=== PATIENT | male | born 1980 ===

== ENCOUNTER 2019-01-21 12:10 | Inpatient (IN) | payer MEDICARE ==
[2019-01-21] MEDS ORDERED: Morphine 4 MG/ML VIAL IV STA ×2 (12:44→14:39)
[2019-01-21] MEDS ORDERED: Sodium Chloride 0.9% 1,000 ML IV STA (12:44)
[2019-01-21] MEDS ORDERED: Morphine 4 MG/ML VIAL ONE ×2 (12:50→14:28)
[2019-01-21 13:23] LABS: BASO % 0.4 % (0.0-2.0); EOS # 0.1 K/uL (0.0-0.7); EOS % 1.1 % (0.0-4.0); HEMOGLOBIN 14.5 g/dL (12.0-18.0); LYMPH # 1.9 K/uL (1.0-4.3); LYMPH % 32.2 % (20.0-40.0); MEAN CELL VOLUME 86.4 fl (80.0-94.0); MEAN CORPUSCULAR HEMOGLOBIN 29.7 pg (27.0-31.0); MEAN CORPUSCULAR HGB CONC 34.4 g/dL (33.0-37.0); MEAN PLATELET VOLUME 7.9 fl (7.2-11.7); MONO # 0.7 K/uL (0.0-0.8); NEUT # 3.3 K/uL (1.8-7.0); NEUT % 55.3 % (50.0-75.0); RBC 4.9 Mil/uL (4.40-5.90); RED CELL DISTRIBUTION WIDTH 13.1 % (11.5-14.5)
[2019-01-21 13:36] LABS: ALB/GLOB RATIO 1.3 (1.0-2.1); ALBUMIN 4.8 g/dL (3.5-5.0); ALT/SGPT 38 U/L (21-72); AST/SGOT 28 U/L (17-59); BLOOD UREA NITROGEN 13 mg/dl (9-20); CALCIUM 9.4 mg/dL (8.4-10.2); GFR NON-AFRICAN AMERICAN > 60
[2019-01-21 13:40] LABS: BARBITURATES, UR NEGATIVE (NEGATIVE); BENZODIAZEPINES, UR NEGATIVE (NEGATIVE); OPIATES, UR POSITIVE (NEGATIVE); PHENCYCLIDINE, UR NEGATIVE (NEGATIVE)
--- NOTE | 2019-01-21 13:54 | CT ---
Date of service: 01/21/2019 PROCEDURE: CT Cervical Spine without contrast HISTORY: L arm weakness hx spinal fusion COMPARISON: CT scan without contrast from 08/15/2016 and MRI without contrast from 08/16/2016. TECHNIQUE: Axial computed tomography images were obtained of the cervical spine without the use of intravenous contrast. Coronal and sagittal reformatted images were created and reviewed. Radiation dose: Total exam DLP = 354.72 mGy-cm. This CT exam was performed using one or more of the following dose reduction techniques: Automated exposure control, adjustment of the mA and/or kV according to patient size, and/or use of iterative reconstruction technique. FINDINGS: VERTEBRAE: There is straightening of the cervical spine with loss of normal cervical lordosis. Vertebral alignment is normal. Vertebral height is maintained. There is no acute fracture or traumatic anterior listhesis. The craniocervical junction is normal. The atlantoaxial joint is normal. Status post ACDF at C5-6. The metallic screws and plate are well seated without evidence for loosening or screw fracture. DISCS/SPINAL CANAL/NEURAL FORAMINA: Evaluation of the discs and spinal canal is limited on noncontrast CT examination. Allowing for this: C2-3: No large disc herniation, neural foraminal or spinal canal stenosis. C3-4: No large disc herniation, neural foraminal narrowing or spinal canal stenosis. C4-5: Disc osteophyte complex without spinal canal stenosis. Asymmetric left uncovertebral joint hypertrophy contribute to mild left neural foraminal narrowing. C5-6: Status post discectomy and anterior fusion. No spinal canal stenosis or neural foraminal narrowing. C6-7: Broad-based disc osteophyte complex without central spinal canal stenosis or neural foraminal narrowing. C7-T1: No disc herniation, neural foraminal narrowing or spinal canal stenosis. PARASPINAL SOFT TISSUES: Unremarkable. OTHER FINDINGS: No apical pneumothorax. IMPRESSION: 1. Status post ACDF at C5-6, no evidence for hardware complications. 2. Disc osteophyte complex at C4-5 and C6-7, worse at C4-5 with mild left neural foraminal narrowing. No central spinal canal stenosis. If there is a persistent clinical concern, correlation with MRI of the cervical spine without intravenous contrast may be performed for further evaluation.
--- NOTE | 2019-01-21 13:58 | CT ---
Date of service: 01/21/2019 PROCEDURE: CT Thoracic Spine without contrast HISTORY: chronic thoracic pain worse today COMPARISON: 08/15/2016 TECHNIQUE: Axial computed tomography images were obtained of the thoracic spine without intravenous contrast. Coronal and sagittal reformatted images were created and reviewed. Radiation dose: Total exam DLP = 962.23 mGy-cm. This CT exam was performed using one or more of the following dose reduction techniques: Automated exposure control, adjustment of the mA and/or kV according to patient size, and/or use of iterative reconstruction technique. FINDINGS: VERTEBRAE: There is normal alignment of the thoracic vertebral bodies. There is normal thoracic kyphosis. There is no acute fracture or bone destruction. Bone mineralization is normal. DISCS/SPINAL CANAL/NEURAL FORAMINA: Evaluation of the discs, spinal canal and thoracic spinal cord is limited on noncontrast CT examination. Allowing for this, there is no large disc herniation, neural foraminal narrowing or spinal canal stenosis. PARASPINAL SOFT TISSUES: The paraspinous soft tissues are normal. OTHER FINDINGS: The visualized lungs are clear. IMPRESSION: No acute fracture. Evaluation of the discs, spinal canal and thoracic cord are limited on noncontrast CT examination, allowing for this no large disc herniation, neural foraminal narrowing or spinal canal stenosis.
--- NOTE | 2019-01-21 14:57 | ED PDOC ---
HPI: Back Time Seen by Provider: 01/21/19 12:34 Chief Complaint (Nursing): Upper Extremity Problem/Injury Chief Complaint (Provider): Upper Extremity Problem/Injury History Per: Patient History/Exam Limitations: no limitations Onset/Duration Of Symptoms: Days (x2 days) Additional Complaint(s): Patient is a 38 year old male with a past medical history of chronic thoracic and cervical spine pain, who reports to the emergency department for increasing back pain over the last x2 days. His pain management doctor is Dr. Marrero in [place]. Patient is currently taking Oxycodone, Soma, Gabapentin, Zanaflex and recently started Amitriptyline. He states that pain for the last x2 days is greater in intensity than normal but is in a similar location. Patient denies having any new trauma or IV drug use and states that he has not run out of his pain medications. Patient does also report to have left arm tingling and slight weakness but states that is chronic. He denies any fever, headache, recent spinal procedure, lowering of his pain medication dose, cough, vomiting or abdominal pain. Of note, approximately x2 years ago, patient was seen for back pain when he had a spinal stimulator in place and was diagnosed with a spinal hematoma. He further states that no surgical intervention was needed. PMD: Dr. Marrero Past Medical History Reviewed: Historical Data, Nursing Documentation, Vital Signs Vital Signs: Last Vital Signs Temp 100 F H 01/21/19 12:20 Pulse 122 H 01/21/19 12:20 Resp 16 01/21/19 12:20 BP 135/80 01/21/19 12:20 Pulse Ox 99 01/21/19 12:20 - Medical History PMH: Back Problems - Surgical History Surgical History: Back Surgery (C5-C6 fusion 2010) - Family History Family History: States: Unknown Family Hx - Immunization History Hx Tetanus Toxoid Vaccination: No Hx Influenza Vaccination: No Hx Pneumococcal Vaccination: No - Home Medications Home Medications: Ambulatory Orders Medication Instructions Recorded Amitriptyline HCl 50 mg PO HS 01/21/19 Carisoprodol [Soma] 350 mg PO BID 01/21/19 Gabapentin [Gralise] 800 mg PO TID 01/21/19 Lidocaine 5% [Lidoderm] 2 patch TD DAILY 01/21/19 Oxycodone HCl [Oxycodone HCl ER] 15 mg PO Q6 01/21/19 Tizanidine HCl [Zanaflex] 4 mg PO TID PRN 01/21/19 - Allergies Allergies/Adverse Reactions: Allergies Allergy/AdvReac Type Severity Reaction Status Date / Time No Known Allergies Allergy Verified 08/16/16 11:02 NIHSS Stroke Scale - Date/Time Evaluation Performed Date Performed: 01/21/19 Time Performed: 12:50 When Was NIHSS Performed: Baseline - How Severe is the Stroke Level of Consciousness: 0=Alert LOC to Questions: 0=Both comments correct LOC to commands: 0=Obeys both correctly Best Gaze: 0=Normal Visual: 0=No visual loss Facial: 0=Normal Motor Arm - Left: 1=Drift noted before 10 sec Motor Arm - Right: 0=No drift Motor Leg - Left: 0=No drift Motor Leg - Right: 0=No drift Limb Ataxia: 0=Absent Sensory: 0=Normal Best Language: 0=No aphasia Dysarthia: 0=Normal articulation Extinction & Inattention (Neglect): 0=Normal, no object Score: 1 Review of Systems ROS Statement: Except As Marked, All Systems Reviewed And Found Negative Constitutional: Negative for: Fever Respiratory: Negative for: Cough Gastrointestinal: Negative for: Abdominal Pain Musculoskeletal: Positive for: Back Pain Neurological: Positive for: Weakness (in left arm), Numbness (tingling in left arm). Negative for: Headache Physical Exam - Reviewed Nursing Documentation Reviewed: Yes Vital Signs Reviewed: Yes - Physical Exam Appears: Positive for: Non-toxic, No Acute Distress Head Exam: Positive for: ATRAUMATIC, NORMOCEPHALIC Respiratory: Positive for: Normal Breath Sounds. Negative for: Respiratory Distress Back: Positive for: Vertebral Tenderness (mild along lower cervical to mid thoracic spine), Other ((+) Lidoderm patch to right upper trapezius muscle with mild tenderness along lower cervical and mid thoracic spine; (-) erythema, edema) Neurological/Psych: Positive for: Alert, Oriented, Gait (normal ), Other (strength: Battery Mechanic strength in Right arm is 5/5 and 4/5 in Left ) - Laboratory Results Result Diagrams: 01/22/19 05:50 01/22/19 05:50 Lab Results: Total Bilirubin 0.4 mg/dl (0.2-1.3) 01/21/19 12:55 AST 28 U/L (17-59) 01/21/19 12:55 ALT 38 U/L (21-72) 01/21/19 12:55 Alkaline Phosphatase 78 U/L (38-126) 01/21/19 12:55 Total Protein 8.7 G/DL (6.3-8.2) H 01/21/19 12:55 Albumin 4.8 g/dL (3.5-5.0) 01/21/19 12:55 Globulin 3.8 gm/dL (2.2-3.9) 01/21/19 12:55 Albumin/Globulin Ratio 1.3 (1.0-2.1) 01/21/19 12:55 - ECG O2 Sat by Pulse Oximetry: 99 (RA) Pulse Ox Interpretation: Normal - Progress ED Course And Treament: 1700: remains in pain, has required several doses of opioid medications. Patient is a chronic pain patient Rx opioid by his pain specialist in [place]. He was truthful about his prescriptions and [employer] database queried. No other recent ED visits in EMR. He is aware of risks of fci opioid use and has pain action plan in place with his pain specialist. This exacerbation is acute flare and will r/o other contributing pathology. Medical Decision Making Medical Decision Making: Time: 1240 Plan: Will check labs, ESR or analgesics --CT cervical spine without contrast --Thoracic spine without contrast --Alcohol serum --CMP --Drug screen --CBC with differential --ESR --Sodium chloride 1,000 ml --Morphine 4 mg PO --Toradol 15 mg IVP Time: [address] FINDINGS: VERTEBRAE: There is straightening of the cervical spine with loss of normal cervical lordosis. Vertebral alignment is normal. Vertebral height is maintained. There is no acute fracture or traumatic anterior listhesis. The craniocervical junction is normal. The atlantoaxial joint is normal. Status post ACDF at C5-6. The metallic screws and plate are well seated without evidence for loosening or screw fracture. DISCS/SPINAL CANAL/NEURAL FORAMINA: Evaluation of the discs and spinal canal is limited on noncontrast CT examination. Allowing for this: C2-3: No large disc herniation, neural foraminal or spinal canal stenosis. C3-4: No large disc herniation, neural foraminal narrowing or spinal canal stenosis. C4-5: Disc osteophyte complex without spinal canal stenosis. Asymmetric left uncovertebral joint hypertrophy contribute to mild left neural foraminal narrowing. C5-6: Status post discectomy and anterior fusion. No spinal canal stenosis or neural foraminal narrowing. C6-7: Broad-based disc osteophyte complex without central spinal canal stenosis or neural foraminal narrowing. C7-T1: No disc herniation, neural foraminal narrowing or spinal canal stenosis. PARASPINAL SOFT TISSUES: Unremarkable. OTHER FINDINGS: No apical pneumothorax. IMPRESSION: 1. Status post ACDF at C5-6, no evidence for hardware complications. 2. Disc osteophyte complex at C4-5 and C6-7, worse at C4-5 with mild left neural foraminal narrowing. No central spinal canal stenosis. If there is a persistent clinical concern, correlation with MRI of the cervical spine without intravenous contrast may be performed for further evaluation. Time: [address] FINDINGS: VERTEBRAE: There is normal alignment of the thoracic vertebral bodies. There is normal thoracic kyphosis. There is no acute fracture or bone destruction. Bone mineralization is normal. DISCS/SPINAL CANAL/NEURAL FORAMINA: Evaluation of the discs, spinal canal and thoracic spinal cord is limited on noncontrast CT examination. Allowing for this, there is no large disc herniation, neural foraminal narrowing or spinal canal stenosis. PARASPINAL SOFT TISSUES: The paraspinous soft tissues are normal. OTHER FINDINGS: The visualized lungs are clear. IMPRESSION: No acute fracture. Evaluation of the discs, spinal canal and thoracic cord are limited on noncontrast CT examination, allowing for this no large disc herniation, neural foraminal narrowing or spinal canal stenosis. Time: 1440 --Patient remains in pain, additional morphine ordered. --Morphine 4 mg PO --Tylenol 650 mg PO Time: 1454 --Valium [address] C and T spines discussed w Dr Wilson radiology, she sees small pneumonia poor visualized on this CT, she recommends CT chest as she doesnt believe CXR will adequately visualize it. Accession No. : [id number] Patient Name / ID : ALEKSANDR GUARDADO / [id number] Exam Date : 01/21/2019 15:49:49 ( Approved ) Study Comment : Sex / Age : M / 38Y Creator : Daisy Samuel MD Dictator : Daisy aSmuel MD Permaculture Designer : Environmental Services Technician : Daisy Samuel MD Approver2 : Report Date : 01/21/2019 16:32:06 My Comment : Date of service: 01/21/2019 PROCEDURE: CT Chest without contrast HISTORY: mass/pneumonia on CT Tspine COMPARISON: CT thoracic spine same day TECHNIQUE: Contiguous axial images were obtained through the chest without intravenous contrast enhancement. Sagittal and coronal reconstructions were performed. Radiation dose: Total exam DLP = 553.71 mGy-cm. This CT exam was performed using one or more of the following dose reduction t echniques: Automated exposure control, adjustment of the mA and/or kV according to patient size, and/or use of iterative reconstruction technique. FINDINGS: LUNGS: There is a small amount of nonspecific reticular nodular change and infiltrate seen in the right upper lobe on axial images 26 through 38 series 3. Tree-in-bud appearance is suspected. There is additionally some mild linear subsegmental atelectasis and/or scarring at the right lung base and right middle lobe. Small amount of linear subsegmental atelectasis and scarring is seen in the lingula. MEDIASTINUM: Unremarkable thoracic aorta. No aneurysm. Heart is mildly enlarged. No pericardial effusion is seen. Main pulmonary artery unremarkable. No vascular congestion. There is evidence of some nonspecific scattered mediastinal lymph nodes in the right paratracheal and precarinal region with minimal amount seen in the subcarinal region. Lack of contrast limits evaluation of the hilar regions. No appreciable hilar adenopathy is clearly seen. There is also some mild induration of the anterior mediastinal fat without focal mass. A few tiny anterior mediastinal and prevascular lymph nodes are seen. No aortic atherosclerotic calcification. PLEURA: No pleural fluid. No pneumothorax. BONES: No rib fracture is seen. Please see CT scan thoracic spine report of same day for evaluation of the thoracic spine. Scapula appear intact as well as the visualized clavicles. UPPER ABDOMEN: Stomach is mildly distended but without wall thickening. Visualized esophagus is unremarkable. Visualized liver and spleen are within normal limits. OTHER FINDINGS: None. IMPRESSION: Nonspecific mild right upper lobe reticular nodular infiltrate with possible tree-in-bud appearance. ARAVIND infection should be excluded clinically. Mild linear subsegmental atelectasis elsewhere as described above. Mild nonspecific probable reactive mediastinal lymph nodes. No pleural effusion or pericardial effusion. Patient is a smoker and admits to mild cough recently but no SOB. Pt still c/o L arm weakness, has low grade fever, hx hardware in spinal canal 2 years ago w spinal hematoma. Admit medicine for workup and MRI in morning. Denies headache, photophobia, ambulating in ED well, very unlikely to be meningitis. Dose Zosyn initiated to cover lung and spine prior cultures were obtained. ------ Scribe Attestation: Documented by David Flores, acting as a scribe Julio Cesar Vann III, DO. Provider Scribe Attestation: All medical record entries made by the Scribe were at my direction and person ally dictated by me. I have reviewed the chart and agree that the record accurately reflects my personal performance of the history, physical exam, medical decision making, and the department course for this patient. I have also personally directed, reviewed, and agree with the discharge instructions and disposition. Disposition - Clinical Impression Clinical Impression: Left arm weakness, Pneumonia, Intractable back pain - Patient ED Disposition Is Patient to be Admitted: Yes - Disposition Disposition Time: 17:00 Condition: FAIR
--- NOTE | 2019-01-21 16:35 | CT ---
Date of service: 01/21/2019 PROCEDURE: CT Chest without contrast HISTORY: mass/pneumonia on CT Tspine COMPARISON: CT thoracic spine same day TECHNIQUE: Contiguous axial images were obtained through the chest without intravenous contrast enhancement. Sagittal and coronal reconstructions were performed. Radiation dose: Total exam DLP = 553.71 mGy-cm. This CT exam was performed using one or more of the following dose reduction techniques: Automated exposure control, adjustment of the mA and/or kV according to patient size, and/or use of iterative reconstruction technique. FINDINGS: LUNGS: There is a small amount of nonspecific reticular nodular change and infiltrate seen in the right upper lobe on axial images 26 through 38 series 3. Tree-in-bud appearance is suspected. There is additionally some mild linear subsegmental atelectasis and/or scarring at the right lung base and right middle lobe. Small amount of linear subsegmental atelectasis and scarring is seen in the lingula. MEDIASTINUM: Unremarkable thoracic aorta. No aneurysm. Heart is mildly enlarged. No pericardial effusion is seen. Main pulmonary artery unremarkable. No vascular congestion. There is evidence of some nonspecific scattered mediastinal lymph nodes in the right paratracheal and precarinal region with minimal amount seen in the subcarinal region. Lack of contrast limits evaluation of the hilar regions. No appreciable hilar adenopathy is clearly seen. There is also some mild induration of the anterior mediastinal fat without focal mass. A few tiny anterior mediastinal and prevascular lymph nodes are seen. No aortic atherosclerotic calcification. PLEURA: No pleural fluid. No pneumothorax. BONES: No rib fracture is seen. Please see CT scan thoracic spine report of same day for evaluation of the thoracic spine. Scapula appear intact as well as the visualized clavicles. UPPER ABDOMEN: Stomach is mildly distended but without wall thickening. Visualized esophagus is unremarkable. Visualized liver and spleen are within normal limits. OTHER FINDINGS: None. IMPRESSION: Nonspecific mild right upper lobe reticular nodular infiltrate with possible tree-in-bud appearance. ARAVIND infection should be excluded clinically. Mild linear subsegmental atelectasis elsewhere as described above. Mild nonspecific probable reactive mediastinal lymph nodes. No pleural effusion or pericardial effusion.
[2019-01-21] MEDS ORDERED: Piperacillin/Tazobact 4.5 GM in Sodium Chloride 0.9% 100 ML IVPB STA (18:16)
[2019-01-21] MEDS ORDERED: Oxycodone/Acetaminophen 5/325 mg Tab PO PRN (18:44)
[2019-01-21] MEDS ORDERED: oxyCODONE 10 mg ER Tab (oxyCONTIN) PO ONE (23:52)
[2019-01-22] MEDS ORDERED: OXYCODONE HCL 15 MG PO SCH
[2019-01-22 06:23] LABS: BASO % 0.5 % (0.0-2.0); EOS # 0.1 K/uL (0.0-0.7); HEMOGLOBIN 12.9 g/dL (12.0-18.0); LYMPH % 44.4 % (20.0-40.0); MEAN CELL VOLUME 87.2 fl (80.0-94.0); MEAN CORPUSCULAR HEMOGLOBIN 29.4 pg (27.0-31.0); MEAN CORPUSCULAR HGB CONC 33.7 g/dL (33.0-37.0); MEAN PLATELET VOLUME 7.5 fl (7.2-11.7); MONO # 0.4 K/uL (0.0-0.8); MONO % 9.1 % (0.0-10.0); NEUT # 1.9 K/uL (1.8-7.0); NRBC % 0.1 % (0.0-0.0); RBC 4.41 Mil/uL (4.40-5.90); RED CELL DISTRIBUTION WIDTH 13.3 % (11.5-14.5); WHITE BLOOD COUNT 4.5 K/uL (4.8-10.8)
[2019-01-22 06:36] LABS: BLOOD UREA NITROGEN 14 mg/dl (9-20); CALCIUM 9.2 mg/dL (8.4-10.2); GFR NON-AFRICAN AMERICAN > 60
[2019-01-22] MEDS: Pantoprazole 40 mg EC Tab PO SCH (08:33)
[2019-01-22] MEDS: Azithromycin 500 MG in Sodium Chloride 0.9% 250 ML IVPB SCH (08:33)
[2019-01-22] MEDS: Lidocaine 5% Patch TD SCH (08:34)
--- NOTE | 2019-01-22 08:34 | CP.PCM.CON ---
History of Present Illness - History of Present Illness History of Present Illness: 38 yo man w/ acute on chronic cervical and thoracic pain is referred for pain management. Patient has a history of left sided neck pain with some component of radiculopathy. He's s/p cervical epidural, peripheral stimulator, spinal co rd stimulator trials without success. Recently his pain has been managed by Oxycodone 15mg q6h, Neurontin 800mg q8h, Soma 350mg BID, Zanaflex. The pain flared up 2 days ago without precipitating factors. CT scan showed mild to moderate spondylotic changes, without significant disc herniations or foraminal stenosis. Pain is mainly on the left paraspinal regions, with radiation into the left o ccipital region as well as the left shoulder. There is numbness in the left hand as well. R/B/A of possible interventions were explained, patient elected to have a medial branch nerve block for facet syndrome. Past Patient History - Infectious Disease Hx of Infectious Diseases: None - Past Medical History & Family History Past Medical History?: Yes - Past Social History Smoking Status: Heavy Smoker > 10 Cigarettes Daily - CARDIAC Hx Cardiac Disorders: No - PULMONARY Hx Respiratory Disorders: No - NEUROLOGICAL Hx Neurological Disorder: No - HEENT Hx HEENT Problems: No - RENAL Hx Chronic Kidney Disease: No - ENDOCRINE/METABOLIC Hx Endocrine Disorders: No - HEMATOLOGICAL/ONCOLOGICAL Hx Blood Disorders: No Hx AIDS: No Hx Human Immunodeficiency Virus (HIV): No - INTEGUMENTARY Hx Dermatological Problems: No - MUSCULOSKELETAL/RHEUMATOLOGICAL Hx Musculoskeletal Disorders: Yes Hx Back Pain: Yes Hx Falls: No Other/Comment: Spinal cord stimulator placement and removal - GASTROINTESTINAL Hx Gastrointestinal Disorders: No - GENITOURINARY/GYNECOLOGICAL Hx Genitourinary Disorders: No - PSYCHIATRIC Hx Psychophysiologic Disorder: No Hx Substance Use: No - SURGICAL HISTORY Hx Surgeries: Yes Other/Comment: Spinal cord stimulator placement and removal. Cervical Fusion c4 -c6 2010 - ANESTHESIA Hx Anesthesia: Yes Hx Anesthesia Reactions: No Meds Allergies/Adverse Reactions: Allergies Allergy/AdvReac Type Severity Reaction Status Date / Time No Known Allergies Allergy Verified 08/16/16 11:02 - Medications Medications: Current Medications Amitriptyline HCl (Elavil) 50 mg PO HS [facility] Last Admin: 01/21/19 23:17 Dose: 50 mg Gabapentin (Neurontin) 800 mg PO TID [facility] Last Admin: 01/21/19 23:16 Dose: 800 mg Home Med (Carisoprodol [Soma]) 350 mg PO BID [facility] Home Med (Oxycodone Hcl [Oxycodone Hcl Er]) 15 mg PO Q6 [facility] Azithromycin 500 mg/ Sodium (Chloride) 250 mls @ 250 mls/hr IVPB DAILY [facility]; Protocol Lidocaine (Lidoderm) 1 ea TD DAILY [facility] Morphine Sulfate (Morphine Immediate Release Tab) 15 mg PO Q4 PRN PRN Reason: Pain, severe (8-10) Pantoprazole Sodium (Protonix Ec Tab) 40 mg PO DAILY [facility] Tizanidine HCl (Zanaflex) 4 mg PO TID PRN PRN Reason: pain Last Admin: 01/21/19 23:15 Dose: 4 mg Physical Exam - Neck Exam Neck exam: Positive for: Normal Inspection, Tenderness Results - Vital Signs Recent Vital Signs: Last Vital Signs Temp 98.3 F 01/22/19 07:56 Pulse 80 01/22/19 07:56 Resp 20 01/22/19 07:56 BP 110/70 01/22/19 07:56 Pulse Ox 97 01/22/19 07:56 - Labs Result Diagrams: 01/22/19 05:50 01/22/19 05:50 Labs: Laboratory Results - last 24 hr 01/21/19 01/21/19 01/21/19 12:55 12:55 12:55 WBC 6.0 RBC 4.90 Hgb 14.5 Hct 42.3 MCV 86.4 MCH 29.7 MCHC 34.4 RDW 13.1 Plt Count 214 MPV 7.9 Neut % (Auto) 55.3 Lymph % (Auto) 32.2 [place] % (Auto) 11.0 H Eos % (Auto) 1.1 Baso % (Auto) 0.4 Neut # (Auto) 3.3 Lymph # (Auto) 1.9 [place] # (Auto) 0.7 Eos # (Auto) 0.1 Baso # (Auto) 0.0 ESR 20 H Sodium 141 Potassium 4.0 Chloride 100 Carbon Dioxide 29 Anion Gap 16 BUN 13 Creatinine 0.8 Est GFR ( Amer) > 60 Est GFR (Non-Af Amer) > 60 Random Glucose 102 Calcium 9.4 Total Bilirubin 0.4 AST 28 ALT 38 Alkaline Phosphatase 78 Total Protein 8.7 H Albumin 4.8 Globulin 3.8 Albumin/Globulin Ratio 1.3 Urine Opiates Screen Positive H Urine Methadone Screen Negative Ur Barbiturates Screen Negative Ur Phencyclidine Scrn Negative Ur Amphetamines Screen Negative U Benzodiazepines Scrn Negative U Oth Cocaine Metabols Negative U Cannabinoids Screen Negative Alcohol, Quantitative < 10 01/22/19 01/22/19 05:50 05:50 WBC 4.5 L RBC 4.41 Hgb 12.9 Hct 38.4 MCV 87.2 MCH 29.4 MCHC 33.7 RDW 13.3 Plt Count 195 MPV 7.5 Neut % (Auto) 43.0 L Lymph % (Auto) 44.[address] [place] % (Auto) 9.1 Eos % (Auto) 3.0 Baso % (Auto) 0.5 Neut # (Auto) 1.9 Lymph # (Auto) 2.0 [place] # (Auto) 0.4 Eos # (Auto) 0.1 Baso # (Auto) 0.0 ESR Sodium 141 Potassium 4.5 Chloride 106 Carbon Dioxide 28 Anion Gap 12 BUN 14 Creatinine 0.7 L Est GFR ( Amer) > 60 Est GFR (Non-Af Amer) > 60 Random Glucose 97 Calcium 9.2 Total Bilirubin AST ALT Alkaline Phosphatase Total Protein Albumin Globulin Albumin/Globulin Ratio Urine Opiates Screen Urine Methadone Screen Ur Barbiturates Screen Ur Phencyclidine Scrn Ur Amphetamines Screen U Benzodiazepines Scrn U Oth Cocaine Metabols U Cannabinoids Screen Alcohol, Quantitative Assessment & Plan - Assessment and Plan (Free Text) Assessment: 38 yo man w/ acute on chronic neck pain. Pain is a combination of radiculoapthy and spondylosis, but thus far patient has only had treatment for radiculopathy. CT didn't show significant pathologies that would lead to radiculoapthy. - cervical medial branch nerve blocks - d/c Oxycodone, trial MSIR 15mg - continue rest of home regimen - consider MRI only if pain is refractory the nerve blocks - otherwise patient can be discharged after nerve block for follow-up with primary pain physician
[2019-01-22] MEDS: Morphine 15 mg Immediate Release Tab PO PRN ×3 (11:29→20:14)
--- NOTE | 2019-01-22 11:59 | CP.PCM.CON ---
History of Present Illness - History of Present Illness History of Present Illness: seen on rounds r/o MAC Patient is a 38 year old male with a past medical history of chronic thoracic and cervical spine pain, Upon admission noted to have abnormal CXR and referred for ID eval for this Patient is currently taking Oxycodone, Soma, Gabapentin, Zanaflex and recently started Amitriptyline. Review of Systems - Review of Systems All systems: reviewed and no additional remarkable complaints except - Constitutional Constitutional: As Per HPI - EENT Eyes: absent: As Per HPI, Blind Spots, Blurred Vision, Change in Vision, Decreased Night Vision, Diplopia, Discharge, Dry Eye, Exophthalmos, Floaters, Irritation, Itchy Eyes, Loss of Peripheral Vision, Pain, Photophobia, Requires Corrective Lenses, Sees Flashes, Spots in Vision, Tunnel Vision, Other Visual Disturbances, Loss of Vision, Other Ears: absent: As Per HPI, Decreased Hearing, Ear Discharge, Ear Pain, Tinnitus, Abnormal Hearing, Disequilibrium, Dizziness, Other Nose/Mouth/Throat: absent: As Per HPI, Epistaxis, Nasal Congestion, Nasal Discharge, Nasal Obstruction, Nasal Trauma, Nose Pain, Post Nasal Drip, Sinus Pain, Sinus Pressure, Bleeding Gums, Change in Voice, Dental Pain, Dry Mouth, Dysphagia, Halitosis, Hoarsness, Lip Swelling, Mouth Lesions, Mouth Pain, Odynophagia, Sore Throat, Throat Swelling, Tongue Swelling, Facial Pain, Neck Pain, Neck Mass, Other - Cardiovascular Cardiovascular: absent: As Per HPI, Acrocyanosis, Chest Pain, Chest Pain at Rest, Chest Pain with Activity, Claudication, Diaphoresis, Dyspnea, Dyspnea on Exertion, Edema, Irregular Heart Rhythm, Pain Radiating to Arm/Neck/Jaw, Leg Edema, Leg Ulcers, Lightheadedness, Orthopnea, Palpitations, Paroxysmal Nocturnal Dyspnea, Pedal Edema, Radiating Pain, Rapid Heart Rate, Slow Heart Rate, Syncope, Other - Respiratory Respiratory: As Per HPI. absent: Cough - Gastrointestinal Gastrointestinal: absent: As Per HPI, Abdominal Pain, Belching, Bloating, Change in Bowel Habits, Change in Stool Character, Coffee Ground Emesis, Constipation, Cramping, Diarrhea, Dyspepsia, Dysphagia, Early Satiety, Excessive Flatus, Fecal Incontinence, Heartburn, Hematemesis, Hematochezia, Loose Stools, Melena, Nausea, Odynophagia, Temesmus, Vomiting, Other - Genitourinary Genitourinary: absent: As Per HPI, Change in Urinary Stream, Difficulty Urinating, Dysuria, Flank Pain, Hematuria, Pyuria, Nocturia, Urinary Incontinence, Urinary Frequency, Urinary Hesitance, Urinary Urgency, Voiding Freq/Small Amts, Freq UTI, Hx Renal/Bladder Calculi, Hx /Renal Surgery, Bladder Distension, Other - Musculoskeletal Musculoskeletal: As Per HPI - Integumentary Integumentary: As Per HPI Past Patient History - Infectious Disease Hx of Infectious Diseases: None - Past Medical History & Family History Past Medical History?: Yes - Past Social History Smoking Status: Heavy Smoker > 10 Cigarettes Daily - CARDIAC Hx Cardiac Disorders: No - PULMONARY Hx Respiratory Disorders: No - NEUROLOGICAL Hx Neurological Disorder: No - HEENT Hx HEENT Problems: No - RENAL Hx Chronic Kidney Disease: No - ENDOCRINE/METABOLIC Hx Endocrine Disorders: No - HEMATOLOGICAL/ONCOLOGICAL Hx Blood Disorders: No Hx AIDS: No Hx Human Immunodeficiency Virus (HIV): No - INTEGUMENTARY Hx Dermatological Problems: No - MUSCULOSKELETAL/RHEUMATOLOGICAL Hx Musculoskeletal Disorders: Yes Hx Back Pain: Yes Hx Falls: No Other/Comment: Spinal cord stimulator placement and removal - GASTROINTESTINAL Hx Gastrointestinal Disorders: No - GENITOURINARY/GYNECOLOGICAL Hx Genitourinary Disorders: No - PSYCHIATRIC Hx Psychophysiologic Disorder: No Hx Substance Use: No - SURGICAL HISTORY Hx Surgeries: Yes Other/Comment: Spinal cord stimulator placement and removal. Cervical Fusion c4-c6 2010 - ANESTHESIA Hx Anesthesia: Yes Hx Anesthesia Reactions: No Meds Allergies/Adverse Reactions: Allergies Allergy/AdvReac Type Severity Reaction Status Date / Time No Known Allergies Allergy Verified 08/16/16 11:02 - Medications Medications: Current Medications Amitriptyline HCl (Elavil) 50 mg PO HS [facility] Last Admin: 01/21/19 23:17 Dose: 50 mg Gabapentin (Neurontin) 800 mg PO TID [facility] Last Admin: 01/21/19 23:16 Dose: 800 mg Home Med (Carisoprodol [Soma]) 350 mg PO BID [facility] Home Med (Oxycodone Hcl [Oxycodone Hcl Er]) 15 mg PO Q6 [facility] Azithromycin 500 mg/ Sodium (Chloride) 250 mls @ 250 mls/hr IVPB DAILY [facility]; Protocol Last Admin: 01/22/19 08:33 Dose: 250 mls/hr Lidocaine (Lidoderm) 1 ea TD DAILY [facility] Last Admin: 01/22/19 08:34 Dose: 1 ea Morphine Sulfate (Morphine Immediate Release Tab) 15 mg PO Q4 PRN PRN Reason: Pain, severe (8-10) Last Admin: 01/22/19 11:29 Dose: 15 mg Nicotine (Nicoderm Cq) 1 patch TD DAILY [facility] Pantoprazole Sodium (Protonix Ec Tab) 40 mg PO DAILY [facility] Last Admin: 01/22/19 08:33 Dose: 40 mg Tizanidine HCl (Zanaflex) 4 mg PO TID PRN PRN Reason: pain Last Admin: 01/21/19 23:15 Dose: 4 mg Physical Exam - Constitutional Appears: Non-toxic, No Acute Distress, Chronically Ill - Head Exam Head Exam: ATRAUMATIC, NORMAL INSPECTION, NORMOCEPHALIC - Eye Exam Eye Exam: EOMI, Normal appearance, PERRL Pupil Exam: NORMAL ACCOMODATION, PERRL - ENT Exam ENT Exam: Mucous Membranes Moist, Normal Exam - Neck Exam Neck exam: Positive for: Normal Inspection - Respiratory Exam Respiratory Exam: Clear to Auscultation Bilateral, NORMAL BREATHING PATTERN - Cardiovascular Exam Cardiovascular Exam: REGULAR RHYTHM - GI/Abdominal Exam GI & Abdominal Exam: Normal Bowel Sounds, Soft. absent: Tenderness - Rectal Exam Rectal Exam: Deferred - Exam Exam: NORMAL INSPECTION - Extremities Exam Extremities exam: Positive for: normal inspection - Back Exam Back exam: NORMAL INSPECTION - Neurological Exam Neurological exam: Alert, CN II-XII Intact, Normal Gait, Oriented x3, Reflexes Normal - Psychiatric Exam Psychiatric exam: Normal Affect, Normal Mood - Skin Skin Exam: Dry, Intact, Normal Color, Warm Results - Vital Signs Recent Vital Signs: Last Vital Signs Temp 98.3 F 01/22/19 07:56 Pulse 80 01/22/19 07:56 Resp 20 01/22/19 07:56 BP 110/70 01/22/19 07:56 Pulse Ox 97 01/22/19 07:56 - Labs Result Diagrams: 01/22/19 05:50 01/22/19 05:50 Labs: Laboratory Results - last 24 hr 01/21/19 01/21/19 01/21/19 12:55 12:55 12:55 WBC 6.0 RBC 4.90 Hgb 14.5 Hct 42.3 MCV 86.4 MCH 29.7 MCHC 34.4 RDW 13.1 Plt Count 214 MPV 7.9 Neut % (Auto) 55.3 Lymph % (Auto) 32.2 [place] % (Auto) 11.0 H Eos % (Auto) 1.1 Baso % (Auto) 0.4 Neut # (Auto) 3.3 Lymph # (Auto) 1.9 [place] # (Auto) 0.7 Eos # (Auto) 0.1 Baso # (Auto) 0.0 ESR 20 H Sodium 141 Potassium 4.0 Chloride 100 Carbon Dioxide 29 Anion Gap 16 BUN 13 Creatinine 0.8 Est GFR ( Amer) > 60 Est GFR (Non-Af Amer) > 60 Random Glucose 102 Calcium 9.4 Total Bilirubin 0.4 AST 28 ALT 38 Alkaline Phosphatase 78 Total Protein 8.7 H Albumin 4.8 Globulin 3.8 Albumin/Globulin Ratio 1.3 Urine Opiates Screen Positive H Urine Methadone Screen Negative Ur Barbiturates Screen Negative Ur Phencyclidine Scrn Negative Ur Amphetamines Screen Negative U Benzodiazepines Scrn Negative U Oth Cocaine Metabols Negative U Cannabinoids Screen Negative Alcohol, Quantitative < 10 01/22/19 01/22/19 05:50 05:50 WBC 4.5 L RBC 4.41 Hgb 12.9 Hct 38.4 MCV 87.2 MCH 29.4 MCHC 33.7 RDW 13.3 Plt Count 195 MPV 7.5 Neut % (Auto) 43.0 L Lymph % (Auto) 44.4 H [place] % (Auto) 9.1 Eos % (Auto) 3.0 Baso % (Auto) 0.5 Neut # (Auto) 1.9 Lymph # (Auto) 2.0 [place] # (Auto) 0.4 Eos # (Auto) 0.1 Baso # (Auto) 0.0 ESR Sodium 141 Potassium 4.5 Chloride 106 Carbon Dioxide 28 Anion Gap 12 BUN 14 Creatinine 0.7 L Est GFR ( Amer) > 60 Est GFR (Non-Af Amer) > 60 Random Glucose 97 Calcium 9.2 Total Bilirubin AST ALT Alkaline Phosphatase Total Protein Albumin Globulin Albumin/Globulin Ratio Urine Opiates Screen Urine Methadone Screen Ur Barbiturates Screen Ur Phencyclidine Scrn Ur Amphetamines Screen U Benzodiazepines Scrn U Oth Cocaine Metabols U Cannabinoids Screen Alcohol, Quantitative Assessment & Plan (1) Abnormal CXR (chest x-ray) Status: Acute (2) Back pain Status: Acute (3) Shoulder pain Status: Acute - Assessment and Plan (Free Text) Assessment: will send sputum AFB before clearing for discharge
[2019-01-22] MEDS ORDERED: guaiFENesin DM 200 mg-20 mg/10 ml UD PO SCH (19:45)
[2019-01-22] MEDS ORDERED: oxyCODONE 10 mg ER Tab (oxyCONTIN) PO ONE (23:34)
[2019-01-22] MEDS: Promethazine DM 12.5 mg-30 mg/10 ml Syrup PO SCH ×2 (23:58)
[2019-01-23] MEDS: Morphine 15 mg Immediate Release Tab PO PRN ×6 (00:13→22:02)
--- NOTE | 2019-01-23 02:24 | HP ---
CHIEF COMPLAINT: Back pain. HISTORY OF PRESENT ILLNESS: This is a 38-year-old male without significant past medical history, but history of chronic back pain for which the patient is followed up by pain management in [place] [address] . The patient also underwent spinal stimulator and multiple narcotics for long time. The patient was managing his pain fairly well with medication, but for the last few days, the patient's pain got significantly worse and was not getting controlled with the patient home medication management, so the patient was brought to the emergency room and was admitted for further management. REVIEW OF SYSTEMS: Positive for back pain. Review of systems otherwise is negative for headache, dizziness, syncope, loss of consciousness, chest pain, shortness of breath, nausea, vomiting, diarrhea, constipation, anemia, joint or lower extremity pain other than the back pain. Review of system of all other organ system is unremarkable. PAST MEDICAL HISTORY: Significant for chronic back pain. PAST SURGICAL HISTORY: Remarkable for spinal stimulator, back surgery and C5 and C6 fusion. PERSONAL HISTORY: The patient is currently a smoker, but no alcohol or substance abuse. MEDICATIONS: The patient is on multiple medications, which are as per reconciliation sheet, which were reviewed and ordered. ALLERGIES: THE PATIENT IS NOT ALLERGIC TO ANY MEDICATIONS. PHYSICAL EXAMINATION: GENERAL: A well-built, well-nourished, overweight 38-year-old male in no acute distress. VITAL SIGNS: Temperature 98.2, pulse 80, respirations 20, blood pressure 110/70, and saturation 97%. HEENT: Pupils are reacting to light. No JVD. No thyromegaly. No lymphadenopathy. No nystagmus. Normocephalic and atraumatic skull. HEART: S1 and S2, normal and regular. No significant murmur, gallop or rub is heard. LUNGS: Show good bilateral air exchange. No rales or rhonchi. ABDOMEN: Soft. Nontender. No organomegaly. No fluids. Bowel sounds are present and normal. EXTREMITIES: No edema. No calf swelling. No tenderness. No acute ischemia. CENTRAL NERVOUS SYSTEM: Essentially unchanged and there is no sign of any acute gross focal motor or sensory neurological deficits. DIAGNOSTIC DATA: Available diagnostic data reviewed. Urine toxicology is positive for opiates. WBC 4.5, hemoglobin 12.9, hematocrit 38.4, platelets 195. Sodium 141, potassium 4.5, chloride 106, bicarbonate 28, BUN 14, creatinine 0.7. SMA-12 yesterday was unremarkable. Thoracic spine and cervical spine CT did not reveal significant findings other than the patient's chronic surgery. Chest CAT scan was negative. Infectious Disease and pain management consults noted and appreciated. ADMITTING IMPRESSION: Intractable back pain. PLAN: As ordered. Case and plan discussed with the patient. Jim Rodriguez MD
[2019-01-23] MEDS: Promethazine DM 12.5 mg-30 mg/10 ml Syrup PO SCH ×3 (08:26→16:17)
[2019-01-23] MEDS: Azithromycin 500 MG in Sodium Chloride 0.9% 250 ML IVPB SCH (08:28)
[2019-01-23] MEDS: Pantoprazole 40 mg EC Tab PO SCH (09:10)
--- NOTE | 2019-01-23 09:45 | CP.PCM.PN ---
Subjective - Date & Time of Evaluation Date of Evaluation: 01/23/19 Time of Evaluation: 09:00 - Subjective Subjective: 38 y/o M was evaluated and examined by bedside with Dr Rodriguez. Pt reports feeling Ok. Pt reports increased coughing since last night, pt is collecting sputum. Pt had a fever of 102.8 F this morning. Pt tolerating PO. 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 Pt last worked there 9 years ago. Pt smokes ~10 cigarettes a day. No TB history or ill contact. Pt reports having TB vaccine at his home country, [facility]. Objective - Vital Signs/Intake and Output Vital Signs (last 24 hours): Temp Pulse Resp BP Pulse Ox 102.8 F H 82 20 109/68 99 01/23/19 08:24 01/23/19 08:09 01/23/19 08:09 01/23/19 08:09 01/23/19 08:17 - Medications Medications: Current Medications Acetaminophen (Tylenol 325mg Tab) 650 mg PO Q6 PRN PRN Reason: Fever >100.4 F Last Admin: 01/23/19 08:24 Dose: 650 mg Amitriptyline HCl (Elavil) 50 mg PO HS [facility] Last Admin: 01/22/19 22:22 Dose: 50 mg Gabapentin (Neurontin) 800 mg PO TID [facility] Last Admin: 01/23/19 08:26 Dose: 800 mg Home Med (Carisoprodol [Soma]) 350 mg PO BID [facility] Azithromycin 500 mg/ Sodium (Chloride) 250 mls @ 250 mls/hr IVPB DAILY [facility]; Protocol Last Admin: 01/23/19 08:28 Dose: 250 mls/hr Lidocaine (Lidoderm) 1 ea TD DAILY [facility] Last Admin: 01/22/19 08:34 Dose: 1 ea Morphine Sulfate (Morphine Immediate Release Tab) 15 mg PO Q4 PRN PRN Reason: Pain, severe (8-10) Last Admin: 01/23/19 06:06 Dose: 15 mg Nicotine (Nicoderm Cq) 1 patch TD DAILY [facility] Last Admin: 01/23/19 08:26 Dose: 1 patch Pantoprazole Sodium (Protonix Ec Tab) 40 mg PO DAILY [facility] Last Admin: 01/22/19 08:33 Dose: 40 mg Promethazine HCl/Dextromethorphan (Phenergan Dm Syrup) 10 ml PO TID [facility] Last Admin: 01/23/19 08:26 Dose: 10 ml Tizanidine HCl (Zanaflex) 4 mg PO TID PRN PRN Reason: pain Last Admin: 01/22/19 22:20 Dose: 4 mg - Labs Labs: 01/22/19 05:50 01/22/19 05:50 - Constitutional Appears: No Acute Distress - Head Exam Head Exam: ATRAUMATIC, NORMAL INSPECTION - Eye Exam Eye Exam: EOMI - ENT Exam ENT Exam: Mucous Membranes Moist - Neck Exam Neck Exam: Full ROM, Normal Inspection. absent: Lymphadenopathy, Meningismus - Respiratory Exam Respiratory Exam: NORMAL BREATHING PATTERN. absent: Rales, Rhonchi, Wheezes, Respiratory Distress - Cardiovascular Exam Cardiovascular Exam: REGULAR RHYTHM, +S1, +S2 - GI/Abdominal Exam GI & Abdominal Exam: Soft. absent: Firm, Guarding, Rigid, Tenderness - Extremities Exam Extremities Exam: Full ROM, Normal Inspection. absent: Calf Tenderness, Pedal Edema - Back Exam Back Exam: absent: CVA tenderness (L), CVA tenderness (R) - Neurological Exam Neurological Exam: Alert, Awake, Oriented x3 Assessment and Plan - Assessment and Plan (Free Text) Assessment: 38 y/o M with a PMHx of chronic upper back pain admitted for intractable back pain and now being evaluated for RUL pulmonary lesion. PLAN: >RUL pulmonary lesion --Fever this morning --CT Chest: non-specific mild RUL reticular nodular infiltrate. ARAVIND should be excluded. --ID on board, Dr Snyder. --Hx of mine work: posible pneumoconiosis? --F/U AF sputum culture x3 --F/U HIV, TB Quantiferon, Blood culture and urine culture. >Chronic upper back pain --S/P C5-6 fusion in 2010 --Pain management on board, Dr Sawant. --Home meds resumed. --Morphine IR PRN. >DVT Prophylaxis --SCD's --Ambulation encouraged. --At low risk for DVT. Case discussed with Dr Jennifer Rodriguez PGY-2
--- NOTE | 2019-01-23 11:50 | RAD ---
Date of service: 01/23/2019 HISTORY: Fever COMPARISON: No prior. TECHNIQUE: 1 view obtained. FINDINGS: LUNGS: No active pulmonary disease. PLEURA: No significant pleural effusion identified, no pneumothorax apparent. CARDIOVASCULAR: No aortic atherosclerotic calcification present. Normal cardiac size. No pulmonary vascular congestion. OSSEOUS STRUCTURES: No significant abnormalities. VISUALIZED UPPER ABDOMEN: Normal. OTHER FINDINGS: None. IMPRESSION: No active disease.
[2019-01-23 12:56] LABS: URINE BILIRUBIN NEGATIVE (NEGATIVE); URINE BLOOD NEGATIVE (NEGATIVE); URINE CLARITY CLEAR (Clear); URINE COLOR YELLOW (YELLOW); URINE GLUCOSE (UA) NEG (NEGATIVE); URINE LEUKOCYTE ESTERASE NEG Leu/uL (Negative); URINE PROTEIN NEGATIVE (NEGATIVE); URINE UROBILINOGEN 0.2-1.0 mg/dL (0.2-1.0)
--- NOTE | 2019-01-23 12:58 | CP.PCM.PN ---
Subjective - Date & Time of Evaluation Date of Evaluation: 01/23/19 Time of Evaluation: 08:00 - Subjective Subjective: seen on rounds IV rx in progress await AFB x 3 Objective - Vital Signs/Intake and Output Vital Signs (last 24 hours): Temp Pulse Resp BP Pulse Ox 102.8 F H 82 20 109/68 99 01/23/19 08:24 01/23/19 08:09 01/23/19 08:09 01/23/19 08:09 01/23/19 08:17 - Medications Medications: Current Medications Acetaminophen (Tylenol 325mg Tab) 650 mg PO Q6 PRN PRN Reason: Fever >100.4 F Last Admin: 01/23/19 08:24 Dose: 650 mg Amitriptyline HCl (Elavil) 50 mg PO HS [facility] Last Admin: 01/22/19 22:22 Dose: 50 mg Gabapentin (Neurontin) 800 mg PO TID [facility] Last Admin: 01/23/19 08:26 Dose: 800 mg Home Med (Carisoprodol [Soma]) 350 mg PO BID [facility] Azithromycin 500 mg/ Sodium (Chloride) 250 mls @ 250 mls/hr IVPB DAILY [facility]; Protocol Last Admin: 01/23/19 08:28 Dose: 250 mls/hr Lidocaine (Lidoderm) 1 ea TD DAILY [facility] Last Admin: 01/22/19 08:34 Dose: 1 ea Morphine Sulfate (Morphine Immediate Release Tab) 15 mg PO Q4 PRN PRN Reason: Pain, severe (8-10) Last Admin: 01/23/19 10:09 Dose: 15 mg Nicotine (Nicoderm Cq) 1 patch TD DAILY [facility] Last Admin: 01/23/19 08:26 Dose: 1 patch Pantoprazole Sodium (Protonix Ec Tab) 40 mg PO DAILY [facility] Last Admin: 01/23/19 09:10 Dose: 40 mg Promethazine HCl/Dextromethorphan (Phenergan Dm Syrup) 10 ml PO TID [facility] Last Admin: 01/23/19 08:26 Dose: 10 ml Tizanidine HCl (Zanaflex) 4 mg PO TID PRN PRN Reason: pain Last Admin: 01/22/19 22:20 Dose: 4 mg - Labs Labs: 01/22/19 05:50 01/22/19 05:50 - Constitutional Appears: Non-toxic, Chronically Ill - Head Exam Head Exam: ATRAUMATIC, NORMAL INSPECTION, NORMOCEPHALIC - Eye Exam Eye Exam: EOMI, Normal appearance, PERRL Pupil Exam: NORMAL ACCOMODATION, PERRL - ENT Exam ENT Exam: Mucous Membranes Moist, Normal Exam - Neck Exam Neck Exam: Full ROM, Normal Inspection. absent: Lymphadenopathy - Respiratory Exam Respiratory Exam: Clear to Ausculation Bilateral, NORMAL BREATHING PATTERN - Cardiovascular Exam Cardiovascular Exam: REGULAR RHYTHM, +S1, +S2. absent: Murmur - GI/Abdominal Exam GI & Abdominal Exam: Soft, Normal Bowel Sounds. absent: Tenderness - Rectal Exam Rectal Exam: Deferred - Exam Exam: NORMAL INSPECTION - Extremities Exam Extremities Exam: Full ROM, Normal Capillary Refill, Normal Inspection. absent: Joint Swelling, Pedal Edema - Back Exam Back Exam: NORMAL INSPECTION - Neurological Exam Neurological Exam: Alert, Awake, CN II-XII Intact, Normal Gait, Oriented x3 - Psychiatric Exam Psychiatric exam: Normal Affect, Normal Mood - Skin Skin Exam: Dry, Intact, Normal Color, Warm Assessment and Plan (1) Abnormal CXR (chest x-ray) Status: Acute (2) Back pain Status: Acute (3) Shoulder pain Status: Acute - Assessment and Plan (Free Text) Assessment: check AFB before OR for epidural
[2019-01-23] MEDS: Lidocaine 5% Patch TD SCH (15:24)
[2019-01-23] MEDS ORDERED: Promethazine DM 12.5 mg-30 mg/10 ml Syrup PO PRN (22:31)
[2019-01-23] MEDS: Promethazine DM 6.25 mg-15 mg/5 ml Syrup PO PRN (23:07)
[2019-01-24] MEDS: Morphine 15 mg Immediate Release Tab PO PRN ×5 (05:33→22:22)
[2019-01-24 06:50] LABS: BASO % 0.5 % (0.0-2.0); EOS # 0.2 K/uL (0.0-0.7); EOS % 4.4 % (0.0-4.0); LYMPH % 41.6 % (20.0-40.0); MEAN CELL VOLUME 86.7 fl (80.0-94.0); MEAN CORPUSCULAR HEMOGLOBIN 28.6 pg (27.0-31.0); MEAN PLATELET VOLUME 7.9 fl (7.2-11.7); MONO # 0.5 K/uL (0.0-0.8); MONO % 11.5 % (0.0-10.0); NRBC % 0.2 % (0.0-0.0); RBC 4.89 Mil/uL (4.40-5.90); RED CELL DISTRIBUTION WIDTH 13.2 % (11.5-14.5); WHITE BLOOD COUNT 4.7 K/uL (4.8-10.8)
[2019-01-24 06:59] LABS: ALB/GLOB RATIO 1.2 (1.0-2.1); ALBUMIN 4.3 g/dL (3.5-5.0); ALT/SGPT 36 U/L (21-72); AST/SGOT 29 U/L (17-59); BLOOD UREA NITROGEN 12 mg/dl (9-20); CALCIUM 9.1 mg/dL (8.4-10.2); GFR NON-AFRICAN AMERICAN > 60
--- NOTE | 2019-01-24 08:18 | CP.PCM.PN ---
<Jose David Rodriguez - Last Filed: 01/24/19 12:07> Subjective - Date & Time of Evaluation Date of Evaluation: 01/24/19 Time of Evaluation: 06:30 - Subjective Subjective: 38 y/o M was evaluated and examined by bedside with Dr Rodriguez. Pt reports feeling well. Pt reports coughing seems to be improving. Back pain is controlled with medications. Ptafebrile, tolerating PO with NO acute events overnight. Objective - Vital Signs/Intake and Output Vital Signs (last 24 hours): Temp Pulse Resp BP Pulse Ox 98.2 F 83 19 126/76 96 01/24/19 00:39 01/24/19 00:39 01/24/19 00:39 01/24/19 00:39 01/24/19 00:39 - Medications Medications: Current Medications Acetaminophen (Tylenol 325mg Tab) 650 mg PO Q6 PRN PRN Reason: Fever >100.4 F Last Admin: 01/23/19 08:24 Dose: 650 mg Amitriptyline HCl (Elavil) 50 mg PO HS [facility] Last Admin: 01/23/19 22:01 Dose: 50 mg Gabapentin (Neurontin) 800 mg PO TID [facility] Last Admin: 01/23/19 16:17 Dose: 800 mg Home Med (Carisoprodol [Soma]) 350 mg PO BID [facility] Azithromycin 500 mg/ Sodium (Chloride) 250 mls @ 250 mls/hr IVPB DAILY [facility]; Protocol Last Admin: 01/23/19 08:28 Dose: 250 mls/hr Lidocaine (Lidoderm) 1 ea TD DAILY [facility] Last Admin: 01/23/19 15:24 Dose: 1 ea Morphine Sulfate (Morphine Immediate Release Tab) 15 mg PO Q4 PRN PRN Reason: Pain, severe (8-10) Last Admin: 01/24/19 05:33 Dose: 15 mg Nicotine (Nicoderm Cq) 1 patch TD DAILY [facility] Last Admin: 01/23/19 08:26 Dose: 1 patch Pantoprazole Sodium (Protonix Ec Tab) 40 mg PO DAILY [facility] Last Admin: 01/23/19 09:10 Dose: 40 mg Promethazine HCl/Dextromethorphan (Phenergan Dm Syrup) 10 ml PO Q6 PRN PRN Reason: Cough Last Admin: 01/23/19 23:07 Dose: 10 ml Tizanidine HCl (Zanaflex) 4 mg PO TID PRN PRN Reason: pain Last Admin: 01/23/19 16:18 Dose: 4 mg - Labs Labs: 01/24/19 04:52 01/24/19 04:52 - Additional Findings Additional findings: - Constitutional Appears: No Acute Distress - Head Exam Head Exam: ATRAUMATIC, NORMAL INSPECTION - Eye Exam Eye Exam: EOMI - ENT Exam ENT Exam: Mucous Membranes Moist - Neck Exam Neck Exam: Full ROM, Normal Inspection. absent: Lymphadenopathy, Meningismus - Respiratory Exam Respiratory Exam: NORMAL BREATHING PATTERN. absent: Rales, Rhonchi, Wheezes, Respiratory Distress - Cardiovascular Exam Cardiovascular Exam: REGULAR RHYTHM, +S1, +S2 - GI/Abdominal Exam GI & Abdominal Exam: Soft. absent: Firm, Guarding, Rigid, Tenderness - Extremities Exam Extremities Exam: Full ROM, Normal Inspection. absent: Calf Tenderness, Pedal Edema - Back Exam Back Exam: absent: CVA tenderness (L), CVA tenderness (R) - Neurological Exam Neurological Exam: Alert, Awake, Oriented x3 Assessment and Plan - Assessment and Plan (Free Text) Assessment: 38 y/o M with a PMHx of chronic upper back pain admitted for intractable back pain and now being evaluated for RUL pulmonary lesion. --CT Chest: non-specific mild RUL reticular nodular infiltrate. PLAN: >RUL pulmonary lesion --Afebrile, vitals stable. --ID on board, Dr Snyder. --HIV negative. Pro-calcitonin was low. --F/U AF sputum culture x3 --F/U TB Quantiferon, Blood culture and urine culture. >Chronic upper back pain --S/P C5-6 fusion in 2010. --Pain is controlled. --Pain management on board, Dr Sawant. --Home meds resumed. --Morphine IR PRN. >DVT Prophylaxis --SCD's --Ambulation encouraged. --At low risk for DVT. Case discussed with Dr Jennifer Rodriguez PGY-2 <Jim Rodriguez - Last Filed: 01/24/19 12:25> Objective - Vital Signs/Intake and Output Vital Signs (last 24 hours): Temp Pulse Resp BP Pulse Ox 97.9 F 78 20 125/81 96 01/24/19 09:00 01/24/19 09:00 01/24/19 09:00 01/24/19 09:00 01/24/19 09:00 - Medications Medications: Current Medications Acetaminophen (Tylenol 325mg Tab) 650 mg PO Q6 PRN PRN Reason: Fever >100.4 F Last Admin: 01/23/19 08:24 Dose: 650 mg Amitriptyline HCl (Elavil) 50 mg PO HS [facility] Last Admin: 01/23/19 22:01 Dose: 50 mg Gabapentin (Neurontin) 800 mg PO TID [facility] Last Admin: 01/24/19 08:40 Dose: 800 mg Home Med (Carisoprodol [Soma]) 350 mg PO BID [facility] Azithromycin 500 mg/ Sodium (Chloride) 250 mls @ 250 mls/hr IVPB DAILY [facility]; Protocol Last Admin: 01/24/19 08:42 Dose: 250 mls/hr Lidocaine (Lidoderm) 1 ea TD DAILY [facility] Last Admin: 01/24/19 08:41 Dose: 1 ea Morphine Sulfate (Morphine Immediate Release Tab) 15 mg PO Q4 PRN PRN Reason: Pain, severe (8-10) Last Admin: 01/24/19 10:26 Dose: 15 mg Nicotine (Nicoderm Cq) 1 patch TD DAILY [facility] Last Admin: 01/24/19 08:41 Dose: 1 patch Pantoprazole Sodium (Protonix Ec Tab) 40 mg PO DAILY [facility] Last Admin: 01/24/19 08:40 Dose: 40 mg Promethazine HCl/Dextromethorphan (Phenergan Dm Syrup) 10 ml PO Q6 PRN PRN Reason: Cough Last Admin: 01/24/19 08:45 Dose: 10 ml Tizanidine HCl (Zanaflex) 4 mg PO TID PRN PRN Reason: pain Last Admin: 01/24/19 08:40 Dose: 4 mg - Labs Labs: 01/24/19 04:52 01/24/19 04:52 Assessment and Plan - Assessment and Plan (Free Text) Assessment: Patient was personally seen and examined by me in rounds with residents. Available labs and diagnostic data reviewed. Case, Patient's condition and management plan discussed with residents in rounds. Agree with resident's progress note. Plan: As ordered.
[2019-01-24] MEDS: Pantoprazole 40 mg EC Tab PO SCH (08:40)
[2019-01-24] MEDS: Lidocaine 5% Patch TD SCH (08:41)
[2019-01-24] MEDS: Azithromycin 500 MG in Sodium Chloride 0.9% 250 ML IVPB SCH (08:42)
[2019-01-24] MEDS: Promethazine DM 6.25 mg-15 mg/5 ml Syrup PO PRN ×2 (08:45→21:18)
--- NOTE | 2019-01-24 14:22 | CP.PCM.PN ---
Subjective - Date & Time of Evaluation Date of Evaluation: 01/24/19 Time of Evaluation: 08:00 - Subjective Subjective: NAD NO NEW COMPLAINTS SEEN ON ROUNDS LABS REVIEWED ORDERS SIGNED Objective - Vital Signs/Intake and Output Vital Signs (last 24 hours): Temp Pulse Resp BP Pulse Ox 97.9 F 78 20 125/81 96 01/24/19 09:00 01/24/19 09:00 01/24/19 09:00 01/24/19 09:00 01/24/19 09:00 - Medications Medications: Current Medications Acetaminophen (Tylenol 325mg Tab) 650 mg PO Q6 PRN PRN Reason: Fever >100.4 F Last Admin: 01/23/19 08:24 Dose: 650 mg Amitriptyline HCl (Elavil) 50 mg PO HS [facility] Last Admin: 01/23/19 22:01 Dose: 50 mg Gabapentin (Neurontin) 800 mg PO TID [facility] Last Admin: 01/24/19 13:45 Dose: 800 mg Home Med (Carisoprodol [Soma]) 350 mg PO BID [facility] Azithromycin 500 mg/ Sodium (Chloride) 250 mls @ 250 mls/hr IVPB DAILY [facility]; Protocol Last Admin: 01/24/19 08:42 Dose: 250 mls/hr Lidocaine (Lidoderm) 1 ea TD DAILY [facility] Last Admin: 01/24/19 08:41 Dose: 1 ea Morphine Sulfate (Morphine Immediate Release Tab) 15 mg PO Q4 PRN PRN Reason: Pain, severe (8-10) Last Admin: 01/24/19 14:13 Dose: 15 mg Nicotine (Nicoderm Cq) 1 patch TD DAILY [facility] Last Admin: 01/24/19 08:41 Dose: 1 patch Pantoprazole Sodium (Protonix Ec Tab) 40 mg PO DAILY [facility] Last Admin: 01/24/19 08:40 Dose: 40 mg Promethazine HCl/Dextromethorphan (Phenergan Dm Syrup) 10 ml PO Q6 PRN PRN Reason: Cough Last Admin: 01/24/19 08:45 Dose: 10 ml Tizanidine HCl (Zanaflex) 4 mg PO TID PRN PRN Reason: pain Last Admin: 01/24/19 08:40 Dose: 4 mg - Labs Labs: 01/24/19 04:52 01/24/19 04:52 - Constitutional Appears: Chronically Ill - Head Exam Head Exam: ATRAUMATIC, NORMAL INSPECTION, NORMOCEPHALIC - Eye Exam Eye Exam: EOMI, Normal appearance, PERRL Pupil Exam: NORMAL ACCOMODATION, PERRL - ENT Exam ENT Exam: Mucous Membranes Moist, Normal Exam - Neck Exam Neck Exam: Full ROM, Normal Inspection. absent: Lymphadenopathy - Respiratory Exam Respiratory Exam: Clear to Ausculation Bilateral, NORMAL BREATHING PATTERN - Cardiovascular Exam Cardiovascular Exam: REGULAR RHYTHM, +S1, +S2. absent: Murmur - GI/Abdominal Exam GI & Abdominal Exam: Soft, Normal Bowel Sounds. absent: Tenderness - Rectal Exam Rectal Exam: Deferred - Exam Exam: NORMAL INSPECTION - Extremities Exam Extremities Exam: Full ROM, Normal Capillary Refill, Normal Inspection. absent: Joint Swelling, Pedal Edema - Back Exam Back Exam: NORMAL INSPECTION - Neurological Exam Neurological Exam: Alert, Awake, CN II-XII Intact, Normal Gait, Oriented x3 - Psychiatric Exam Psychiatric exam: Normal Affect, Normal Mood - Skin Skin Exam: Dry, Intact, Normal Color, Warm Assessment and Plan (1) Abnormal CXR (chest x-ray) Status: Acute (2) Back pain Status: Acute (3) Shoulder pain Status: Acute - Assessment and Plan (Free Text) Assessment: AWAIT FOR AFB SMEARS BEFOR OR FOR EPIDURAL INJECTION
--- NOTE | 2019-01-24 14:24 | CP.PCM.PN ---
Subjective - Date & Time of Evaluation Date of Evaluation: 01/24/19 Time of Evaluation: 14:20 - Subjective Subjective: Patient is still undergoing work-up for RUL CT finding. Awaiting final culture results. Objective - Vital Signs/Intake and Output Vital Signs (last 24 hours): Temp Pulse Resp BP Pulse Ox 97.9 F 78 20 125/81 96 01/24/19 09:00 01/24/19 09:00 01/24/19 09:00 01/24/19 09:00 01/24/19 09:00 - Medications Medications: Current Medications Acetaminophen (Tylenol 325mg Tab) 650 mg PO Q6 PRN PRN Reason: Fever >100.4 F Last Admin: 01/23/19 08:24 Dose: 650 mg Amitriptyline HCl (Elavil) 50 mg PO HS [facility] Last Admin: 01/23/19 22:01 Dose: 50 mg Gabapentin (Neurontin) 800 mg PO TID [facility] Last Admin: 01/24/19 13:45 Dose: 800 mg Home Med (Carisoprodol [Soma]) 350 mg PO BID [facility] Azithromycin 500 mg/ Sodium (Chloride) 250 mls @ 250 mls/hr IVPB DAILY [facility]; Protocol Last Admin: 01/24/19 08:42 Dose: 250 mls/hr Lidocaine (Lidoderm) 1 ea TD DAILY [facility] Last Admin: 01/24/19 08:41 Dose: 1 ea Morphine Sulfate (Morphine Immediate Release Tab) 15 mg PO Q4 PRN PRN Reason: Pain, severe (8-10) Last Admin: 01/24/19 14:13 Dose: 15 mg Nicotine (Nicoderm Cq) 1 patch TD DAILY [facility] Last Admin: 01/24/19 08:41 Dose: 1 patch Pantoprazole Sodium (Protonix Ec Tab) 40 mg PO DAILY [facility] Last Admin: 01/24/19 08:40 Dose: 40 mg Promethazine HCl/Dextromethorphan (Phenergan Dm Syrup) 10 ml PO Q6 PRN PRN Reason: Cough Last Admin: 01/24/19 08:45 Dose: 10 ml Tizanidine HCl (Zanaflex) 4 mg PO TID PRN PRN Reason: pain Last Admin: 01/24/19 08:40 Dose: 4 mg - Labs Labs: 01/24/19 04:52 01/24/19 04:52 Assessment and Plan - Assessment and Plan (Free Text) Assessment: 38 yo man w/ acute on chronic neck pain. Injection is delayed due to ID work-up of suspicious CT chest finding. If patient still wants to have injection while hospitalized, it will have to wait until Tuesday. In any event, the pain issue isn't acute and can be managed as outpatient - f/u ID recommendations - patient may be discharged to own pain physician, patient can resume home pain medications - alternatively, patient can be referred to outpatient pain clinic @ [phone] for outpatient injection
[2019-01-24] MEDS ORDERED: Promethazine DM 12.5 mg-30 mg/10 ml Syrup PO SCH (22:17)
[2019-01-25 07:01] LABS: BASO % 0.5 % (0.0-2.0); EOS # 0.2 K/uL (0.0-0.7); EOS % 4.1 % (0.0-4.0); HEMOGLOBIN 14.2 g/dL (12.0-18.0); LYMPH # 2.7 K/uL (1.0-4.3); LYMPH % 54.7 % (20.0-40.0); MEAN CELL VOLUME 85.8 fl (80.0-94.0); MEAN CORPUSCULAR HEMOGLOBIN 29.2 pg (27.0-31.0); MEAN CORPUSCULAR HGB CONC 34.1 g/dL (33.0-37.0); MEAN PLATELET VOLUME 7.4 fl (7.2-11.7); MONO # 0.4 K/uL (0.0-0.8); MONO % 8.7 % (0.0-10.0); NEUT # 1.6 K/uL (1.8-7.0); NRBC % 0.2 % (0.0-0.0); RBC 4.86 Mil/uL (4.40-5.90); RED CELL DISTRIBUTION WIDTH 13.4 % (11.5-14.5); WHITE BLOOD COUNT 4.9 K/uL (4.8-10.8)
--- NOTE | 2019-01-25 08:12 | CP.PCM.PN ---
<Jose David Rodriguez - Last Filed: 01/25/19 08:08> Subjective - Date & Time of Evaluation Date of Evaluation: 01/25/19 Time of Evaluation: 07:00 - Subjective Subjective: 38 y/o M was seen and examined by bedside. Pt reports feeling well. No fever overnight. Pt tolerating PO. No acute events overnight. Pain is well controlled. Objective - Vital Signs/Intake and Output Vital Signs (last 24 hours): Temp Pulse Resp BP Pulse Ox 97.6 F 82 19 112/72 98 01/25/19 00:23 01/25/19 00:23 01/25/19 00:23 01/25/19 00:23 01/25/19 00:23 - Medications Medications: Current Medications Acetaminophen (Tylenol 325mg Tab) 650 mg PO Q6 PRN PRN Reason: Fever >100.4 F Last Admin: 01/23/19 08:24 Dose: 650 mg Amitriptyline HCl (Elavil) 50 mg PO HS [facility] Last Admin: 01/24/19 21:17 Dose: 50 mg Gabapentin (Neurontin) 800 mg PO TID [facility] Last Admin: 01/24/19 16:35 Dose: 800 mg Home Med (Carisoprodol [Soma]) 350 mg PO BID [facility] Azithromycin 500 mg/ Sodium (Chloride) 250 mls @ 250 mls/hr IVPB DAILY [facility]; Protocol Last Admin: 01/24/19 08:42 Dose: 250 mls/hr Lidocaine (Lidoderm) 1 ea TD DAILY [facility] Last Admin: 01/24/19 08:41 Dose: 1 ea Morphine Sulfate (Morphine Immediate Release Tab) 15 mg PO Q4 PRN PRN Reason: Pain, severe (8-10) Last Admin: 01/24/19 22:22 Dose: 15 mg Nicotine (Nicoderm Cq) 1 patch TD DAILY [facility] Last Admin: 01/24/19 08:41 Dose: 1 patch Pantoprazole Sodium (Protonix Ec Tab) 40 mg PO DAILY [facility] Last Admin: 01/24/19 08:40 Dose: 40 mg Promethazine HCl/Dextromethorphan (Phenergan Dm Syrup) 10 ml PO Q6 PRN PRN Reason: Cough Last Admin: 01/24/19 21:18 Dose: 10 ml Tizanidine HCl (Zanaflex) 4 mg PO TID PRN PRN Reason: pain Last Admin: 01/24/19 16:37 Dose: 4 mg - Labs Labs: 01/25/19 06:30 01/24/19 04:52 - Additional Findings Additional findings: - Constitutional Appears: No Acute Distress - Head Exam Head Exam: ATRAUMATIC, NORMAL INSPECTION - Eye Exam Eye Exam: EOMI - ENT Exam ENT Exam: Mucous Membranes Moist - Neck Exam Neck Exam: Full ROM, Normal Inspection. absent: Lymphadenopathy, Meningismus - Respiratory Exam Respiratory Exam: NORMAL BREATHING PATTERN. absent: Rales, Rhonchi, Wheezes, Respiratory Distress - Cardiovascular Exam Cardiovascular Exam: REGULAR RHYTHM, +S1, +S2 - GI/Abdominal Exam GI & Abdominal Exam: Soft. absent: Firm, Guarding, Rigid, Tenderness - Extremities Exam Extremities Exam: Full ROM, Normal Inspection. absent: Calf Tenderness, Pedal Edema - Back Exam Back Exam: absent: CVA tenderness (L), CVA tenderness (R) - Neurological Exam Neurological Exam: Alert, Awake, Oriented x3 Assessment and Plan - Assessment and Plan (Free Text) Assessment: 38 y/o M with a PMHx of chronic upper back pain admitted for intractable back pain and now being evaluated for RUL pulmonary lesion. --CT Chest: non-specific mild RUL reticular nodular infiltrate. --HIV negative. Pro-calcitonin was low. PLAN: >RUL pulmonary lesion --Afebrile, vitals stable. --ID on board, Dr Snyder. --2x preliminary AF Sputum Cx with NO acid fast bacilli. --Blood Cx negative x3. (2BCx after 3 days and 1BCx 24hrs after) --F/U TB Quantiferon, Blood culture and urine culture. --F/U AF sputum culture x3. >Chronic upper back pain --S/P C5-6 fusion in 2010. --Pain is controlled. --Pain management on board, Dr Sawant. --Home meds resumed. --Morphine IR PRN. >DVT Prophylaxis --SCD's --Ambulation encouraged. --At low risk for DVT. Case discussed with Dr Jennifer Rodriguez PGY-2 <Jim Rodriguez - Last Filed: 01/28/19 11:37> Objective - Vital Signs/Intake and Output Vital Signs (last 24 hours): Temp Pulse Resp BP Pulse Ox 97.8 F 89 20 120/81 99 01/26/19 16:28 01/26/19 16:28 01/26/19 16:28 01/26/19 16:28 01/26/19 16:28 - Labs Labs: 01/25/19 06:30 01/24/19 04:52 Assessment and Plan - Assessment and Plan (Free Text) Assessment: Patient was personally seen and examined by me in rounds with residents. Available labs and diagnostic data reviewed. Case, Patient's condition and management plan discussed with residents in rounds. Agree with resident's progress note. Plan: As ordered.
[2019-01-25] MEDS: Morphine 15 mg Immediate Release Tab PO PRN ×4 (08:20→21:18)
[2019-01-25] MEDS: Lidocaine 5% Patch TD SCH (08:23)
[2019-01-25] MEDS: Pantoprazole 40 mg EC Tab PO SCH (08:24)
[2019-01-25] MEDS: Azithromycin 500 MG in Sodium Chloride 0.9% 250 ML IVPB SCH (08:26)
[2019-01-25 08:46] VITALS: RESP 20
--- NOTE | 2019-01-25 17:41 | CP.PCM.PN ---
Subjective - Date & Time of Evaluation Date of Evaluation: 01/25/19 Time of Evaluation: 09:00 - Subjective Subjective: afebrile AFB neg x 2 for possible OR in am Objective - Vital Signs/Intake and Output Vital Signs (last 24 hours): Temp Pulse Resp BP Pulse Ox 97.8 F 76 20 121/71 97 01/25/19 16:27 01/25/19 16:27 01/25/19 16:27 01/25/19 16:27 01/25/19 16:27 - Medications Medications: Current Medications Acetaminophen (Tylenol 325mg Tab) 650 mg PO Q6 PRN PRN Reason: Fever >100.4 F Last Admin: 01/23/19 08:24 Dose: 650 mg Amitriptyline HCl (Elavil) 50 mg PO HS [facility] Last Admin: 01/24/19 21:17 Dose: 50 mg Gabapentin (Neurontin) 800 mg PO TID [facility] Last Admin: 01/25/19 16:50 Dose: 800 mg Home Med (Carisoprodol [Soma]) 350 mg PO BID [facility] Lidocaine (Lidoderm) 1 ea TD DAILY [facility] Last Admin: 01/25/19 08:23 Dose: 1 ea Morphine Sulfate (Morphine Immediate Release Tab) 15 mg PO Q4 PRN PRN Reason: Pain, severe (8-10) Last Admin: 01/25/19 16:49 Dose: 15 mg Nicotine (Nicoderm Cq) 1 patch TD DAILY [facility] Last Admin: 01/25/19 08:24 Dose: 1 patch Pantoprazole Sodium (Protonix Ec Tab) 40 mg PO DAILY [facility] Last Admin: 01/25/19 08:24 Dose: 40 mg Promethazine HCl/Dextromethorphan (Phenergan Dm Syrup) 10 ml PO Q6 PRN PRN Reason: Cough Last Admin: 01/24/19 21:18 Dose: 10 ml Tizanidine HCl (Zanaflex) 4 mg PO TID PRN PRN Reason: pain Last Admin: 01/25/19 16:50 Dose: 4 mg - Labs Labs: 01/25/19 06:30 01/24/19 04:52 - Constitutional Appears: Well, Non-toxic, Chronically Ill - Head Exam Head Exam: ATRAUMATIC, NORMAL INSPECTION, NORMOCEPHALIC - Eye Exam Eye Exam: EOMI, Normal appearance, PERRL Pupil Exam: NORMAL ACCOMODATION, PERRL - ENT Exam ENT Exam: Mucous Membranes Moist, Normal Exam - Neck Exam Neck Exam: Full ROM, Normal Inspection. absent: Lymphadenopathy - Respiratory Exam Respiratory Exam: Clear to Ausculation Bilateral, NORMAL BREATHING PATTERN - Cardiovascular Exam Cardiovascular Exam: REGULAR RHYTHM, +S1, +S2. absent: Murmur - GI/Abdominal Exam GI & Abdominal Exam: Soft, Normal Bowel Sounds. absent: Tenderness - Rectal Exam Rectal Exam: Deferred - Extremities Exam Extremities Exam: Full ROM, Normal Capillary Refill, Normal Inspection. absent: Joint Swelling, Pedal Edema - Back Exam Back Exam: NORMAL INSPECTION - Neurological Exam Neurological Exam: Alert, Awake, CN II-XII Intact, Normal Gait, Oriented x3 - Psychiatric Exam Psychiatric exam: Normal Affect, Normal Mood - Skin Skin Exam: Dry, Intact, Normal Color, Warm Assessment and Plan (1) Abnormal CXR (chest x-ray) Status: Acute (2) Back pain Status: Acute (3) Shoulder pain Status: Acute - Assessment and Plan (Free Text) Assessment: for OR in am if third AFB neg
[2019-01-26] MEDS: Morphine 15 mg Immediate Release Tab PO PRN ×3 (06:45→15:52)
[2019-01-26] MEDS: Pantoprazole 40 mg EC Tab PO SCH (09:19)
[2019-01-26] MEDS: Lidocaine 5% Patch TD SCH (09:19)
--- NOTE | 2019-01-26 09:39 | CP.PCM.PN ---
<Jose David Rodriguez - Last Filed: 01/26/19 09:31> Subjective - Date & Time of Evaluation Date of Evaluation: 01/26/19 Time of Evaluation: 07:20 - Subjective Subjective: 38 y/o M was seen and examined by bedside. Pt reports feeling well. No fever overnight Pt denies headache, fever, chills, chest pain, SOB, nausea, vomiting, rash or peripheral edema. Objective - Vital Signs/Intake and Output Vital Signs (last 24 hours): Temp Pulse Resp BP Pulse Ox 97.9 F 84 20 132/84 96 01/26/19 09:00 01/26/19 09:00 01/26/19 09:00 01/26/19 09:00 01/26/19 09:00 - Medications Medications: Current Medications Acetaminophen (Tylenol 325mg Tab) 650 mg PO Q6 PRN PRN Reason: Fever >100.4 F Last Admin: 01/23/19 08:24 Dose: 650 mg Amitriptyline HCl (Elavil) 50 mg PO HS [facility] Last Admin: 01/25/19 21:18 Dose: 50 mg Gabapentin (Neurontin) 800 mg PO TID [facility] Last Admin: 01/26/19 09:18 Dose: 800 mg Home Med (Carisoprodol [Soma]) 350 mg PO BID [facility] Lidocaine (Lidoderm) 1 ea TD DAILY [facility] Last Admin: 01/26/19 09:19 Dose: 1 ea Morphine Sulfate (Morphine Immediate Release Tab) 15 mg PO Q4 PRN PRN Reason: Pain, severe (8-10) Last Admin: 01/26/19 06:45 Dose: 15 mg Nicotine (Nicoderm Cq) 1 patch TD DAILY [facility] Last Admin: 01/26/19 09:20 Dose: 1 patch Pantoprazole Sodium (Protonix Ec Tab) 40 mg PO DAILY [facility] Last Admin: 01/26/19 09:19 Dose: 40 mg Promethazine HCl/Dextromethorphan (Phenergan Dm Syrup) 10 ml PO Q6 PRN PRN Reason: Cough Last Admin: 01/24/19 21:18 Dose: 10 ml Tizanidine HCl (Zanaflex) 4 mg PO TID PRN PRN Reason: pain Last Admin: 01/25/19 16:50 Dose: 4 mg - Labs Labs: 01/25/19 06:30 01/24/19 04:52 - Additional Findings Additional findings: - Constitutional Appears: No Acute Distress - Head Exam Head Exam: ATRAUMATIC, NORMAL INSPECTION - Eye Exam Eye Exam: EOMI - ENT Exam ENT Exam: Mucous Membranes Moist - Neck Exam Neck Exam: Full ROM, Normal Inspection. absent: Lymphadenopathy, Meningismus - Respiratory Exam Respiratory Exam: NORMAL BREATHING PATTERN. absent: Rales, Rhonchi, Wheezes, Respiratory Distress - Cardiovascular Exam Cardiovascular Exam: REGULAR RHYTHM, +S1, +S2 - GI/Abdominal Exam GI & Abdominal Exam: Soft. absent: Firm, Guarding, Rigid, Tenderness - Extremities Exam Extremities Exam: Full ROM, Normal Inspection. absent: Calf Tenderness, Pedal Edema - Back Exam Back Exam: absent: CVA tenderness (L), CVA tenderness (R) - Neurological Exam Neurological Exam: Alert, Awake, Oriented x3 Assessment and Plan - Assessment and Plan (Free Text) Assessment: 38 y/o M with a PMHx of chronic upper back pain admitted for intractable back pain and now being evaluated for RUL pulmonary lesion. --CT Chest: non-specific mild RUL reticular nodular infiltrate. --HIV negative. Pro-calcitonin was low. PLAN: >RUL pulmonary lesion --Afebrile, vitals stable. --ID on board, Dr Snyder. --2x preliminary AF Sputum Cx with NO acid fast bacilli. --Blood Cx negative x3. Urine Cx negative. --TB Quantiferon negative. --F/U AF sputum culture x3. >Chronic upper back pain --S/P C5-6 fusion in 2010. --Pain is controlled. --Pain management on board, Dr Sawant. --Home meds resumed. --Morphine IR PRN. --Possible OR by pain management team. >DVT Prophylaxis --SCD's --Ambulation encouraged. --At low risk for DVT. Case discussed with Dr Jennifer Rodriguez PGY-2 <Jim Rodriguez - Last Filed: 01/28/19 11:36> Objective - Vital Signs/Intake and Output Vital Signs (last 24 hours): Temp Pulse Resp BP Pulse Ox 97.8 F 89 20 120/81 99 01/26/19 16:28 01/26/19 16:28 01/26/19 16:28 01/26/19 16:28 01/26/19 16:28 - Labs Labs: 01/25/19 06:30 01/24/19 04:52 Assessment and Plan - Assessment and Plan (Free Text) Assessment: Patient was personally seen and examined by me in rounds with residents. Available labs and diagnostic data reviewed. Case, Patient's condition and management plan discussed with residents in rounds. Agree with resident's progress note. Plan: As ordered.
--- NOTE | 2019-01-26 14:12 | CP.PCM.PN ---
Subjective - Date & Time of Evaluation Date of Evaluation: 01/26/19 Time of Evaluation: 09:00 - Subjective Subjective: seen and examined no new complaints labs reviewed orders signed Objective - Vital Signs/Intake and Output Vital Signs (last 24 hours): Temp Pulse Resp BP Pulse Ox 97.9 F 84 20 132/84 96 01/26/19 09:00 01/26/19 09:00 01/26/19 09:00 01/26/19 09:00 01/26/19 09:00 - Medications Medications: Current Medications Acetaminophen (Tylenol 325mg Tab) 650 mg PO Q6 PRN PRN Reason: Fever >100.4 F Last Admin: 01/23/19 08:24 Dose: 650 mg Amitriptyline HCl (Elavil) 50 mg PO HS [facility] Last Admin: 01/25/19 21:18 Dose: 50 mg Gabapentin (Neurontin) 800 mg PO TID [facility] Last Admin: 01/26/19 13:28 Dose: 800 mg Home Med (Carisoprodol [Soma]) 350 mg PO BID [facility] Lidocaine (Lidoderm) 1 ea TD DAILY [facility] Last Admin: 01/26/19 09:19 Dose: 1 ea Morphine Sulfate (Morphine Immediate Release Tab) 15 mg PO Q4 PRN PRN Reason: Pain, severe (8-10) Last Admin: 01/26/19 11:19 Dose: 15 mg Nicotine (Nicoderm Cq) 1 patch TD DAILY [facility] Last Admin: 01/26/19 09:20 Dose: 1 patch Pantoprazole Sodium (Protonix Ec Tab) 40 mg PO DAILY [facility] Last Admin: 01/26/19 09:19 Dose: 40 mg Promethazine HCl/Dextromethorphan (Phenergan Dm Syrup) 10 ml PO Q6 PRN PRN Reason: Cough Last Admin: 01/24/19 21:18 Dose: 10 ml Tizanidine HCl (Zanaflex) 4 mg PO TID PRN PRN Reason: pain Last Admin: 01/25/19 16:50 Dose: 4 mg - Labs Labs: 01/25/19 06:30 01/24/19 04:52 - Constitutional Appears: Non-toxic, No Acute Distress, Chronically Ill - Head Exam Head Exam: ATRAUMATIC, NORMAL INSPECTION, NORMOCEPHALIC - Eye Exam Eye Exam: EOMI, Normal appearance, PERRL Pupil Exam: NORMAL ACCOMODATION, PERRL - ENT Exam ENT Exam: Mucous Membranes Moist, Normal Exam - Neck Exam Neck Exam: Full ROM, Normal Inspection. absent: Lymphadenopathy - Respiratory Exam Respiratory Exam: Clear to Ausculation Bilateral, NORMAL BREATHING PATTERN - Cardiovascular Exam Cardiovascular Exam: REGULAR RHYTHM, +S1, +S2. absent: Murmur - GI/Abdominal Exam GI & Abdominal Exam: Soft, Normal Bowel Sounds. absent: Tenderness - Rectal Exam Rectal Exam: Deferred - Exam Exam: NORMAL INSPECTION - Extremities Exam Extremities Exam: Full ROM, Normal Capillary Refill, Normal Inspection. absent: Joint Swelling, Pedal Edema - Back Exam Back Exam: NORMAL INSPECTION - Neurological Exam Neurological Exam: Alert, Awake, CN II-XII Intact, Normal Gait, Oriented x3 - Psychiatric Exam Psychiatric exam: Normal Affect, Normal Mood - Skin Skin Exam: Dry, Intact, Normal Color, Warm Assessment and Plan (1) Abnormal CXR (chest x-ray) Status: Acute (2) Back pain Status: Acute (3) Shoulder pain Status: Acute - Assessment and Plan (Free Text) Assessment: await 3rd neg AFB possible OR in am
--- NOTE | 2019-01-26 14:55 | PQF ---
PROVIDER RESPONSE TEXT: --Pneumonia, ruled out: No leukocytosis, pro-calcitonin is low, clinical picture is less concordant w ith pneumonia. REVIEWER QUERY TEXT: Conflicting Documentation Clarification Physician?s Documentation Request This Form is Not a Permanent Document in the Medical Record Pt Name: GEO CATALAN MR #: [id number] Payor: MEDICARE PART A Unit/Bed: [place] [id number] Adm Date: 01/23/2019 9:48:00 AM Reviewer: Yue Adrian Ext. Query Date: 01/25/2019 12:42:29 PM Conflicting Documentation Clarification [id number] By submitting this query, we are merely seeking further clarification of documentation to accurately reflect all conditions that you are monitoring, evaluating, treating or that extend the hospitalizati on or utilize additional resources of care. Please utilize your independent clinical judgment when ad dressing the question(s) below. Dear Doctor Jose David Rodriguez, The patient?s Clinical Indicators include: -- A single mention of Pneumonia appears in the ER record and then the diagnosis is dropped. Please document if the condition is: -- Confirmed and current -- Confirmed, treated and resolved -- Ruled out -- Other, please specify 01/25 Resident /Attending progress note includes: >RUL pulmonary lesion --Afebrile, vitals stable.--ID on board, Dr Snyder.--2x preliminary AF Sputum Cx with NO acid fast bacilli.-Blood Cx negative x3. ( 2BCx after 3 days and 1BCx 24hrs after) --F/U TB Quantiferon, Blood culture and urine culture.--F/U A F sputum culture x3. >Chronic upper back pain --S/P C5-6 fusion in 2010.--Pain is controlled.--Pain management on board, Komal Sawant. --Home meds resumed.--Morphine IR PRN. -piperacillin and azithromycin discontinued PLEASE DOCUMENT ANY ADDITIONAL DIAGNOSES AND/OR SPECIFICITY IN THE PROGRESS NOTES AND/OR DISCHARGE MARCUS MMARY. Clinically unable to determine/unknown Disagree with the above request Need to discuss Query created by: Yue Adrian on 01/25/2019 12:42 PM Electronically signed by: Jose David Rodriguez 01/26/2019 2:52 PM
--- NOTE | 2019-01-26 15:10 | CP.PCM.PN ---
Subjective - Date & Time of Evaluation Date of Evaluation: 01/26/19 Time of Evaluation: 15:00 - Subjective Subjective: Still awaiting AFB #3. Pain is unchanged, in left paraspinal region. Patient is still interested in the injection but does not want to wait until Tuesday. Pain is managed on the current regimen. Objective - Vital Signs/Intake and Output Vital Signs (last 24 hours): Temp Pulse Resp BP Pulse Ox 97.9 F 84 20 132/84 96 01/26/19 09:00 01/26/19 09:00 01/26/19 09:00 01/26/19 09:00 01/26/19 09:00 - Medications Medications: Current Medications Acetaminophen (Tylenol 325mg Tab) 650 mg PO Q6 PRN PRN Reason: Fever >100.4 F Last Admin: 01/23/19 08:24 Dose: 650 mg Amitriptyline HCl (Elavil) 50 mg PO HS [facility] Last Admin: 01/25/19 21:18 Dose: 50 mg Gabapentin (Neurontin) 800 mg PO TID [facility] Last Admin: 01/26/19 13:28 Dose: 800 mg Home Med (Carisoprodol [Soma]) 350 mg PO BID [facility] Lidocaine (Lidoderm) 1 ea TD DAILY [facility] Last Admin: 01/26/19 09:19 Dose: 1 ea Morphine Sulfate (Morphine Immediate Release Tab) 15 mg PO Q4 PRN PRN Reason: Pain, severe (8-10) Last Admin: 01/26/19 11:19 Dose: 15 mg Nicotine (Nicoderm Cq) 1 patch TD DAILY [facility] Last Admin: 01/26/19 09:20 Dose: 1 patch Pantoprazole Sodium (Protonix Ec Tab) 40 mg PO DAILY [facility] Last Admin: 01/26/19 09:19 Dose: 40 mg Promethazine HCl/Dextromethorphan (Phenergan Dm Syrup) 10 ml PO Q6 PRN PRN Reason: Cough Last Admin: 01/24/19 21:18 Dose: 10 ml Tizanidine HCl (Zanaflex) 4 mg PO TID PRN PRN Reason: pain Last Admin: 01/25/19 16:50 Dose: 4 mg - Labs Labs: 01/25/19 06:30 01/24/19 04:52 - Neck Exam Neck Exam: Tenderness Assessment and Plan - Assessment and Plan (Free Text) Assessment: 38 yo man w/ acute on chronic neck pain. Undergoing work-up for lung lesion, injection delayed as a result. Patient wishes to go home and will have injection as outpatient. - patient can follow-up at outpatient pain clinic at [phone].
--- NOTE | 2019-01-26 16:15 | CP.PCM.DIS ---
Provider - Provider Date of Admission: 01/23/19 09:48 Attending physician: Jim Rodriguez MD Primary care physician: Dr. Marrero Consults: 01/21/19 18:58 Physiatry Consult Stat Comment: Consulting Provider: Judith Sawant Consulting Physician: Judith Sawant Reason for Consult: for pain management 01/22/19 10:10 Infectious Disease Consult Routine Comment: Consulting Provider: Jaspreet Snyder Consulting Physician: Jaspreet Snyder Reason for Consult: Reticular nodular infiltrate, ? ARAVIND Time Spent in preparation of Discharge (in minutes): 30 Diagnosis - Discharge Diagnosis (1) Abnormal CXR (chest x-ray) Status: Acute (2) Intractable back pain Status: Acute Hospital Course - Lab Results Lab Results: Micro Results 01/25/19 12:30 Unknown - Sputum Mycobacterial Culture - Preliminary 01/23/19 10:30 Blood Blood Culture - Preliminary NO GROWTH AFTER 3 DAYS 01/21/19 07:55 Blood-Venous Blood Culture - Preliminary NO GROWTH AFTER 4 DAYS 01/21/19 19:20 Blood-Venous Blood Culture - Preliminary NO GROWTH AFTER 4 DAYS 01/23/19 14:00 Urine,Clean Catch Urine Culture - Final No Growth (<1,000 CFU/ML) 01/22/19 16:00 Unknown - Sputum Mycobacterial Culture - Preliminary 01/23/19 14:00 Unknown - Sputum Mycobacterial Culture - Preliminary Most Recent Lab Values WBC 4.9 K/uL (4.8-10.8) 01/25/19 06:30 RBC 4.86 Mil/uL (4.40-5.90) 01/25/19 06:30 Hgb 14.2 g/dL (12.0-18.0) 01/25/19 06:30 Hct 41.7 % (35.0-51.0) 01/25/19 06:30 MCV 85.8 fl (80.0-94.0) 01/25/19 06:30 MCH 29.2 pg (27.0-31.0) 01/25/19 06:30 MCHC 34.1 g/dL (33.0-37.0) 01/25/19 06:30 RDW 13.4 % (11.5-14.5) 01/25/19 06:30 Plt Count 224 K/uL (130-400) 01/25/19 06:30 MPV 7.4 fl (7.2-11.7) 01/25/19 06:30 Neut % (Auto) 32.0 % (50.0-75.0) L 01/25/19 06:30 Lymph % (Auto) 54.7 % (20.0-40.0) H 01/25/19 06:30 [place] % (Auto) 8.7 % (0.0-10.0) 01/25/19 06:30 Eos % (Auto) 4.1 % (0.0-4.0) H 01/25/19 06:30 Baso % (Auto) 0.5 % (0.0-2.0) 01/25/19 06:30 Neut # (Auto) 1.6 K/uL (1.8-7.0) L 01/25/19 06:30 Lymph # (Auto) 2.7 K/uL (1.0-4.3) 01/25/19 06:30 [place] # (Auto) 0.4 K/uL (0.0-0.8) 01/25/19 06:30 Eos # (Auto) 0.2 K/uL (0.0-0.7) 01/25/19 06:30 Baso # (Auto) 0.0 K/uL (0.0-0.2) 01/25/19 06:30 ESR 20 mm/hr (0-15) H 01/21/19 12:55 Sodium 140 mmol/l (132-148) 01/24/19 04:52 Potassium 4.1 MMOL/L (3.6-5.0) 01/24/19 04:52 Chloride 103 mmol/L (98-107) 01/24/19 04:52 Carbon Dioxide 28 mmol/L (22-30) 01/24/19 04:52 Anion Gap 13 (10-20) 01/24/19 04:52 BUN 12 mg/dl (9-20) 01/24/19 04:52 Creatinine 0.7 mg/dl (0.8-1.5) L 01/24/19 04:52 Est GFR ( Amer) > 60 01/24/19 04:52 Est GFR (Non-Af Amer) > 60 01/24/19 04:52 Random Glucose 95 mg/dL (75-110) 01/24/19 04:52 Calcium 9.1 mg/dL (8.4-10.2) 01/24/19 04:52 Total Bilirubin 0.3 mg/dl (0.2-1.3) 01/24/19 04:52 AST 29 U/L (17-59) 01/24/19 04:52 ALT 36 U/L (21-72) 01/24/19 04:52 Alkaline Phosphatase 67 U/L (38-126) 01/24/19 04:52 Total Protein 7.8 G/DL (6.3-8.2) 01/24/19 04:52 Albumin 4.3 g/dL (3.5-5.0) 01/24/19 04:52 Globulin 3.5 gm/dL (2.2-3.9) 01/24/19 04:52 Albumin/Globulin Ratio 1.2 (1.0-2.1) 01/24/19 04:52 Procalcitonin < 0.05 NG/ML (0.19-0.49) L 01/24/19 04:52 Urine Color Yellow (YELLOW) 01/23/19 12:44 Urine Clarity Clear (Clear) 01/23/19 12:44 Urine pH 6.0 (5.0-8.0) 01/23/19 12:44 Ur Specific [place] 1.021 (1.003-1.030) 01/23/19 12:44 Urine Protein Negative mg/dL (NEGATIVE) 01/23/19 12:44 Urine Glucose (UA) Neg mg/dL (NEGATIVE) 01/23/19 12:44 Urine Ketones Negative mg/dL (NEGATIVE) 01/23/19 12:44 Urine Blood Negative (NEGATIVE) 01/23/19 12:44 Urine Nitrate Negative (NEGATIVE) 01/23/19 12:44 Urine Bilirubin Negative (NEGATIVE) 01/23/19 12:44 Urine Urobilinogen 0.2-1.0 mg/dL (0.2-1.0) 01/23/19 12:44 Ur Leukocyte Esterase Neg Jenn/uL (Negative) 01/23/19 12:44 Urine RBC (Auto) 1 /hpf (0-3) 01/23/19 12:44 Urine Microscopic WBC < 1 /hpf (0-5) 01/23/19 12:44 Urine Opiates Screen Positive (NEGATIVE) H 01/21/19 12:55 Urine Methadone Screen Negative (NEGATIVE) 01/21/19 12:55 Ur Barbiturates Screen Negative (NEGATIVE) 01/21/19 12:55 Ur Phencyclidine Scrn Negative (NEGATIVE) 01/21/19 12:55 Ur Amphetamines Screen Negative (NEGATIVE) 01/21/19 12:55 U Benzodiazepines Scrn Negative (NEGATIVE) 01/21/19 12:55 U Oth Cocaine Metabols Negative (NEGATIVE) 01/21/19 12:55 U Cannabinoids Screen Negative (NEGATIVE) 01/21/19 12:55 Alcohol, Quantitative < 10 mg/dl (0-10) 01/21/19 12:55 HIV 1&2 Antibody Screen Negative (NEGATIVE) 01/23/19 06:05 TB Test (QFT) Nil 0.14 IU/mL 01/23/19 06:05 TB Test Mitogen - Nil 6.48 IU/mL 01/23/19 06:05 TB Test Antigen - Nil 0.02 IU/mL 01/23/19 06:05 TB Test TB - Nil 0.01 IU/mL 01/23/19 06:05 TB Test (QFT) Negative (Negative) 01/23/19 06:05 - Hospital Course Hospital Course: 38 y/o M with a PMHx of chronic upper back pain admitted for intractable back pain and now being evaluated for RUL pulmonary lesion. Pain management was consulted. OR procedure, cervical medial branch nerve blocks was planned. However, CXR showed RUL lesion. ID consulted. 3x AFB Cultures preliminary negative for acid fast bacilli. TB Quantiferon is negative. Pt requesting to leave today. ID and pain management agree with d/c pt and returnin on Tuesday for OR procedure. - Date & Time of H&P Date of H&P: 01/22/19 Time of H&P: 14:46 Discharge Exam - Additional Findings Additional findings: - Constitutional Appears: No Acute Distress - Head Exam Head Exam: ATRAUMATIC, NORMAL INSPECTION - Eye Exam Eye Exam: EOMI - ENT Exam ENT Exam: Mucous Membranes Moist - Neck Exam Neck Exam: Full ROM, Normal Inspection. absent: Lymphadenopathy, Meningismus - Respiratory Exam Respiratory Exam: NORMAL BREATHING PATTERN. absent: Rales, Rhonchi, Wheezes, Respiratory Distress - Cardiovascular Exam Cardiovascular Exam: REGULAR RHYTHM, +S1, +S2 - GI/Abdominal Exam GI & Abdominal Exam: Soft. absent: Firm, Guarding, Rigid, Tenderness - Extremities Exam Extremities Exam: Full ROM, Normal Inspection. absent: Calf Tenderness, Pedal Edema - Back Exam Back Exam: absent: CVA tenderness (L), CVA tenderness (R) - Neurological Exam Neurological Exam: Alert, Awake, Oriented x3 Discharge Plan - Follow Up Plan Condition: FAIR Disposition: HOME/ ROUTINE Instructions: Upper Back Pain (DC), Back Precautions Additional Instructions: follow up with your primary MD 1 week Return on Tuesday for OR procedure by pain management. [phone] Referrals: Gideon Marrero MD [Medical Doctor] - Jose Luis Sawant-Dl Sykes MD [Staff Provider] - Jaspreet Snyder MD [Staff Provider] -
[2019-01-26 16:28] VITALS: BP 120/81; PULSE 89; TEMP 97.8; O2SAT 99
--- NOTE | 2019-01-30 13:14 | PQF ---
PROVIDER RESPONSE TEXT: Pain due to cervical spine radiculopathy, REVIEWER QUERY TEXT: Clarification of Clinical Diagnostic Findings Physician?s Documentation Request This Form is Not a Permanent Document in the Medical Record Pt Name: GEO CATALAN MR #: [id number] Payor: MEDICARE PART A Unit/Bed: [id number] Adm Date: 01/23/2019 9:48:00 AM Reviewer: Yue Adrian Ext. Query Date: 01/25/2019 1:16:00 PM Clarification of Clinical Diagnostic Findings [id number] By submitting this query, we are merely seeking further clarification of documentation to accurately reflect all conditions that you are monitoring, evaluating, treating or that extend the hospitalizati on or utilize additional resources of care. Please utilize your independent clinical judgment when ad dressing the question(s) below. Dear Doctor Jose David Rodriguez, The patient?s Clinical Indicators include: -- Please further clarify the Pain MD's documentation as follows:-- with acute on chronic neck pain. Pain is a combination of radiculoapthy and spondylosis, but thus far patient has only had treatment f or radiculopathy.CT didn't show significant pathologies that would lead to radiculopathy. --- cervica l medial branch nerve blocks i.e.: - Pain due to Spondylosis and Radiculopathy of the cervical region -Or: Pain due to Spondylosis of the cervical region -OR: Other etiology of acute or chronic or acute on chronic upper back pain Cervical CT: 1.Status post ACDF at C5-6, no evidence for hardware complications.2.Disc osteophyte com plex at C4-5 and C6-7, worse at C4-5 with mild left neural foraminal narrowing.No central spinal sadie l stenosis.If there is a persistent clinical concern, correlation with MRI of the cervical spine wit hout intravenous contrast may be performed for further evaluation. 01/22 Pain MD consult includes: - cervical medial branch nerve blocks - d/c Oxycodone, trial MSIR 15mg - continue rest of home regimen - consider MRI only if pain is refractory the nerve blocks - 01/24 Pain MD note includes: Injection is delayed due to ID work-up of suspicious CT chest finding. PLEASE DOCUMENT ANY ADDITIONAL DIAGNOSES AND/OR SPECIFICITY IN THE PROGRESS NOTES AND/OR DISCHARGE MARCUS MMARY. Clinically unable to determine/unknown Disagree with the above request Need to discuss Query created by: Yue Adrian on 01/25/2019 1:16 PM Electronically signed by: Jose David Rodriguez 01/30/2019 1:12 PM
== END 2019-01-26 16:30 | disposition home or self-care (01) | DRG 74 ==
LOC: H.ER 12:10 → H.ERHOLD 18:11 → H.MEDSURG1 20:37 → OBSVTOIN 01-23 09:48
PROVIDERS: ADMIT Internal Medicine; ATTEND Internal Medicine
DX: M54.12 Radiculopathy, cervical region (principal); J98.11 Atelectasis; M47.9 Spondylosis, unspecified; F17.210 Nicotine dependence, cigarettes, uncomplicated; G89.29 Other chronic pain; M25.78 Osteophyte, vertebrae; Z79.899 Other long term (current) drug therapy; Z98.1 Arthrodesis status; M25.519 Pain in unspecified shoulder; M54.2 Cervicalgia